=== PATIENT | male | born 1975 | race Two or more races ===

== ENCOUNTER 2024-09-20 17:52 | Inpatient (IN) | payer OTHER ==
[~2024-09-20] VITALS: Ht 170.2 cm; Wt 146.8 kg
--- NOTE | 2024-09-20 19:09 | DVH ---
Exam: CT CT AB PEL WO CON-NO ORAL OR IV History: periumbilical pain Comparison Study: None TECHNIQUE: Multidetector CT of the abdomen and pelvis was performed from lung bases to pubic symphysi s. Imaging was performed without IV contrast. Axial, coronal, and sagittal multiplanar reformats were obtained from the axial data set by the technologist. RADIATION DOSE: CTDI vol 26.24 mGy. DLP 1547.92 mGy.cm Findings: Limited evaluation of the solid organs in the absence of IV contrast. Liver: Nodular contour of the liver. Spleen: Splenomegaly. Pancreas: Unremarkable. Gallbladder: Cholelithiasis/biliary sludge. Adrenals: Unremarkable Kidneys: Unremarkable. Pelvic Viscera: Unremarkable. Vasculature: Mild atherosclerotic aortoiliac calcifications. Upper abdominal varices. Retroperitoneum: Moderate abdominopelvic ascites. Shotty retroperitoneal nodes. Bowel: No bowel obstruction. The appendix is normal. Small hiatal hernia. Musculoskeletal: Unremarkable. Soft tissues: Diffuse subcutaneous edema. Small umbilical hernia containing ascites. Lungs: The lung bases are clear. Impression: 1. Cirrhosis with constellation of findings as detailed suggesting portal hypertension in the appropr iate clinical setting. 2. Additional findings as detailed.
[2024-09-20 19:14] LABS: Hematocrit 40.8 % (41.0-53.0); Hemoglobin 13.9 g/dL (13.5-17.5); Mean Corpuscular Hemoglobin 28.6 pg (28.0-32.0); Mean Corpuscular Volume 84.0 fL (80.0-100.0); Nucleated Red Blood Cells % 0.1 %
[2024-09-20 19:31] LABS: Albumin 3.3 g/dL (3.2-4.8); Anion Gap 6 (5-15); BUN/Creatinine Ratio 11.9 (10.0-20.0); Blood Urea Nitrogen 10 mg/dL (9-23); Carbon Dioxide 28 mmol/L (20-31); Chloride 105 mmol/L (98-107); Lipase 38 U/L (12-53); Potassium 4.0 mmol/L (3.5-5.1); Sodium 139 mmol/L (136-145); Total Protein 6.7 g/dL (5.7-8.2)
[2024-09-20 19:32] LABS: Alanine Aminotransferase 78 U/L (7-40); Alkaline Phosphatase 117 U/L (46-116); Bilirubin, Total 4.0 mg/dL (0.2-1.0); Calcium 8.5 mg/dL (8.7-10.4); Glucose 128 mg/dL (74-106)
--- NOTE | 2024-09-20 21:03 | ED.PDOC ---
GI ASSESSMENT HPI Comments 48 year old male came to ER due to abdominal pain. Patient states for the past 3 weeks he has been having progressively worsening periumbilical pain, pressure, with a sensation of something protruding out his umbilicus. Noted abdominal distention and worsening pedal edema. Denies any fever, nausea or vomiting. Patient admits that he used to be a heavy alcohol drinker. Chief Complaint: Abdominal Pain Time Seen by MD: 21:02 Primary Care Provider: NONE Reviewed Notes: Nurses Notes Allergies: Coded Allergies: NO KNOWN ALLERGIES (Unverified , 09/20/24) Information Source: Patient Mode of Arrival: Ambulatory Timing: Hours Duration: Intermittent Prehospital treatment: None Quality: Aching Vomitus: None Stool: Normal Severity: Moderate Recent: None Recent Hx of: None Pain Location: Diffuse, Periumbilical Associated sign and symptoms: Abdominal Pain Past Medical History PAST MEDICAL HISTORY: DM Surgical History (Other): right foot surgery Family History Family History: Reviewed,noncontributory to illness Social History Smoker: Non-Smoker Alcohol: Sober Drugs: Denies Drug Use Lives In: Home Constitutional: denies: chills, diaphoresis, fatigue, fever, malaise, sweats, weakness, others EENTM: denies: blurred vision, double vision, ear bleeding, ear discharge, ear drainage, ear pain, ear ringing, eye pain, eye redness, hearing loss, mouth p ain, mouth swelling, nasal discharge, nose bleeding, nose congestion, nose pain, photophobia, tearing, throat pain, throat swelling, voice changes, others Respiratory: denies: cough, hemoptysis, orthopnea, SOB at rest, shortness of br eath, SOB with excertion, stridor, wheezing, others Cardiovascular: reports: edema; denies: chest pain, dizzy spells, diaphoresis, Dyspnea on exertion, irregular heart beat, left arm pain, lightheadedness, palpitations, PND, syncope, others Gastrointestinal: reports: abdomen distended, abdominal pain; denies: blood streaked bowels, constipated, diarrhea, dysphagia, difficulty swallowing, hematemesis, melena, nausea, poor appetite, poor fluid intake, rectal bleeding, rectal pain, vomiting, others Genitourinary: denies: burning, dysuria, flank pain, frequency, hematuria, incontinence, penile discharge, penile sore, pain, testicle pain, testicle swelling, urgency, others Neurological: denies: dizziness, fainting, headache, left sided numbness, left sided weakness, numbness, paresthesia, pre-existing deficit, right sided numbness, right sided weakness, seizure, speech problems, tingling, tremors, weakness, others Musculoskeletal: denies: back pain, gout, joint pain, joint swelling, muscle pain, muscle stiffness, neck pain, others Integumetry: denies: bruises, change in color, change in hair/nails, dryness, laceration, lesions, lumps, rash, wounds, others Allergic/Immunocompromised: denies: Difficulty Healing, Frequent Infections, Hives, Itching, others Hematologic/Lymphatic: denies: anemia, blood clots, easy bleeding, easy bruising, swollen glands, others Endocrine: denies: excessive hunger, excessive sweating, excessive thirst, excessive urination, flushing, intolerance to cold, intolerance to heat, unexplained weight gain, unexplained weight loss, others Psychiatric: denies: anxiety, bipolar disorder, depression, hopeless, panic disorder, schizophrenia, sleepless, suicidal, others Physical Exam General Appearance: No Apparent Distress, Obese HEENT: Other (Pupils and face symmetric. Moist mucous membranes.) Neck: Full Range of Motion, Normal Inspection Respiratory: Decreased Breath Sounds, No Accessory Muscle Use, No Respiratory Distress Cardiovascular: No JVD, Regular Rate/Rhythm Breast Exam: Deferred Gastrointestinal: Distended, Soft, Tenderness (Umbilical. No hernia noted.) Genitalia: Deferred Pelvic: Deferred Rectal: Deferred Extremities: Leg edema, Normal range of motion, Non-tender, Pedal edema Neurologic: Alert (Oriented x4), Normal Affect, Normal Mood, Other (Ambulatory) Cerebellar Function: NOT DONE Reflexes: NOT DONE Skin: Dry, Normal Color, Warm Lymphatic: NOT DONE Was a procedure done? Was a procedure done?: No GI differential Dx Differential Diagnosis: Diverticular disease, Gastritis/PUD, Gastroenteritis, Hernia, Hepatitis, Ischemic Bowel, Pancreatitis, UTI, Urolithiasis, Mass X-Ray, Labs, Meds, VS Vital Signs Date Time Temp Pulse Resp B/P (MAP) Pulse Ox O2 Delivery O2 Flow Rate FiO2 09/20/24 20:33 76 09/20/24 20:33 98.4 78 18 161/90 (113) 96 98.4 7/11/25 18:12 98.0 79 16 135/73 (93) 96 98.0 Lab Test 09/20/24 18:53 Range/Units White Blood Count 7.1 4.4-10.8 10^3/uL Red Blood Count 4.86 4.5-5.90 10^6/uL Hemoglobin 13.9 13.5-17.5 g/dL Hematocrit 40.8 L 41.0-53.0 % Mean Corpuscular Volume 84.0 80.0-100.0 fL Mean Corpuscular Hemoglobin 28.6 28.0-32.0 pg Mean Corpuscular Hemoglobin Concent 34.0 32.0-36.0 g/dL Red Cell Distribution Width 16.4 H 11.8-14.3 % Platelet Count 163 140-450 10^3/uL Mean Platelet Volume 7.8 6.9-10.8 fL Neutrophils (%) (Auto) 74.3 37.0-80.0 % Lymphocytes (%) (Auto) 12.8 10.0-50.0 % Monocytes (%) (Auto) 8.9 0.0-12.0 % Eosinophils (%) (Auto) 3.3 0.0-7.0 % Basophils (%) (Auto) 0.7 0.0-2.0 % Neutrophils # (Auto) 5.3 1.6-8.6 10 ^3/uL Lymphocytes # (Auto) 0.9 0.4-5.4 10 ^3/uL Monocytes # (Auto) 0.6 0-1.3 10 ^3/uL Eosinophils # (Auto) 0.2 0-0.8 10 ^3/uL Basophils # (Auto) 0 0-0.2 10 ^3/uL Nucleated Red Blood Cells 0.1 % Sodium Level 139 136-145 mmol/L Potassium Level 4.0 3.5-5.1 mmol/L Chloride Level 105 98-107 mmol/L Carbon Dioxide Level 28 20-31 mmol/L Anion Gap 6 5-15 Blood Urea Nitrogen 10 9-23 mg/dL Creatinine 0.84 0.700-1.30 mg/dL Glomerular Filtration Rate Calc 106 >90 mL/min BUN/Creatinine Ratio 11.9 10.0-20.0 Serum Glucose 128 H 74-106 mg/dL Calcium Level 8.5 L 8.7-10.4 mg/dL Total Bilirubin 4.0 H 0.2-1.0 mg/dL Aspartate Amino Transferase (AST) 106 H 13-40 U/L Alanine Aminotransferase (ALT) 78 H 7-40 U/L Alkaline Phosphatase 117 H 46-116 U/L B-Type Natriuretic Peptide 44.73 0-100 pg/mL Total Protein 6.7 5.7-8.2 g/dL Albumin 3.3 3.2-4.8 g/dL Lipase 38 12-53 U/L Exam: CT CT AB PEL WO CON-NO ORAL OR IV History: periumbilical pain Comparison Study: None TECHNIQUE: Multidetector CT of the abdomen and pelvis was performed from lung bases to pubic symphysis. Imaging was performed without IV contrast. Axial, coronal, and sagittal multiplanar reformats were obtained from the axial data set by the technologist. RADIATION DOSE: CTDI vol 26.24 mGy. DLP 1547.92 mGy.cm Findings: Limited evaluation of the solid organs in the absence of IV contrast. Liver: Nodular contour of the liver. Spleen: Splenomegaly. Pancreas: Unremarkable. Gallbladder: Cholelithiasis/biliary sludge. Adrenals: Unremarkable Kidneys: Unremarkable. Pelvic Viscera: Unremarkable. Vasculature: Mild atherosclerotic aortoiliac calcifications. Upper abdominal varices. Retroperitoneum: Moderate abdominopelvic ascites. Shotty retroperitoneal nodes. Bowel: No bowel obstruction. The appendix is normal. Small hiatal hernia. Musculoskeletal: Unremarkable. Soft tissues: Diffuse subcutaneous edema. Small umbilical hernia containing ascites. Lungs: The lung bases are clear. Impression: 1. Cirrhosis with constellation of findings as detailed suggesting portal hypertension in the appropriate clinical setting. 2. Additional findings as detailed. X-Ray, Labs, Meds, VS Comment 48-year-old male with a history of diabetes brought in by family complaining of worsening periumbilical pain, abdominal distention and lower extremity swelling for the past 3 weeks Vitals unremarkable Exam remarkable for abdominal distention, umbilical tenderness to palpation, bilateral lower extremity edema Rhythm strip independently interpreted by me: Sinus rhythm rate 79, no ectopy. CT abdomen and pelvis Impression: 1. Cirrhosis with constellation of findings as detailed suggesting portal hypertension in the appropriate clinical setting. 2. Additional findings as detailed. CBC unremarkable, CMP remarkable for total bilirubin of 4, AST 106, ALT 78, alkaline phos 117, lipase normal Patient treated with the following in the ED: Aldactone 50 mg p.o. On re-evaluation, exam is unchanged and vitals were stable Plan is to admit the patient for GI evaluation for a new diagnosis of liver cirrhosis with ascites Time of 1ST Reevaluation: 20:57 Reevaluation 1ST: Unchanged Patient Education/Counseling: Diagnosis, Treatment Family Education/Counseling: No Family Present SEPSIS Sepsis Screen Date sepsis recognized/suspect: Sep 20, 2024 Time Sepsis recognized/suspect: 1810 Recent Procedure: No On Antibiotic Therapy: No Respiratory Rate >20: No Heart Rate >90: No Temp<36 C (96.8 F) or >38.3 C: No SBP <90 or MAP <65 mmHG: No New Acute Mental Status Change: No Is the patient on CPAP, BIPAP,: No Physician Orders Urinalysis (09/20/24 18:36) Ct Ab Pel Wo Con-No Oral Or Iv (09/20/24 18:36) Vital Signs Date Time Temp Pulse Resp B/P (MAP) Pulse Ox O2 Delivery O2 Flow Rate FiO2 09/20/24 20:33 76 09/20/24 20:33 98.4 78 18 161/90 (113) 96 98.4 09/20/24 18:12 98.0 79 16 135/73 (93) 96 98.0 Laboratory Tests Test 09/20/24 18:53 White Blood Count 7.1 10^3/uL (4.4-10.8) Departure 1 Departure Time of Disposition: 00:00 Impression: Primary Impression: Decompensated hepatic cirrhosis Additional Impression: Ascites Disposition: ADMITTED INPATIENT Admit to: Med Surg Condition: Guarded Critical Care Note Critical Care Time?: No Stability Stability form required: No Heart Score Heart Score: Heart Score Response (Comments) Value History N/A 0 EKG N/A 0 Age N/A 0 Risk Factors N/A 0 Troponin N/A 0 Total 0 I personally scribed for JANNIE JUAREZ MD ([email or web address]) on 09/20/24 at 21:03. Electronically submitted by Miko Rodriguez ([facility]). I personally scribed for JANNIE JUAREZ MD ([email or web address]) on 09/20/24 at 21 :03. Electronically submitted by Miko Rodriguez ([facility]). JANNIE JUAREZ MD Sep 20, 2024 21:03
--- NOTE | 2024-09-20 23:55 | DVHHP2 ---
History of Present Illness History of Present Illness This is a 48-year-old male with past medical history of DM2, right foot surgery came to ER with the complain of abdominal pain which is around the umbilicus, 6/10, localized, no aggravating factor, try Tylenol which helps a little. Patient states for the past 3 weeks he has been having progressively worsening periumbilical pain, pressure, with a sensation of something protruding out his umbilicus. Noted abdominal distention and worsening pedal edema. Patient went to urgent care today and referred to ER due to bilateral leg swelling and conjunct ivitis. 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 His bilateral leg swelling approximately 3 years, swelling improving when he put pillow under the both legs during sleep. Not follow-up with PCP more than2 years and never seen by stadium manager. Having bilateral whitish eye discharge, redness and pain for last 3 days. Patient currently denies any fever, chest pain, SOB, headache, nausea, diarrhea, any focal weakness. PAST MEDICAL HISTORY: DM2 Surgical History : right foot surgery Family History: noncontributory Social History Smoker:Ex-Smoker Alcohol: Stopped 2 years ago Drugs: Denies Drug Use Lives In: Home Allergy: No known allergy PCP: Not Selected Review of Systems Constitutional: No: Fever, Chills, Sweats, Weakness, Malaise, Other Eyes: Pain, Conjunctivae inflammation, Other (Whitish discharge), Redness ENT: No: Ear pain, Ear discharge, Nose pain, Nose discharge, Nose congestion, Mouth pain, Mouth swelling, Throat pain, Throat swelling, Other Respiratory: No: Cough, Dry, Shortness of breath, SOB with excertion, Wheezing, Hemoptysis, Pleuritic Pain, Sputum, Wheezing, Other Cardiovascular: No: Chest Pain, Palpitations, Orthopnea, Paroxysmal Noc. Dyspnea, Edema, Lt Headedness, Other Gastrointestinal: Abdominal Pain, Other (Abdominal distention) Genitourinary: No Dysuria, No Frequency, No Incontinence, No Hematuria, No Retention, No Other Musculoskeletal: foot pain (Bilateral leg swelling); No: other, neck pain, shoulder pain, arm pain, back pain, hand pain, leg pain Skin: No: Rash, Lesions, Jaundice, Bruising, Other Neurological: No: Weakness, Numbness, Incoordination, Change in speech, Confusion, Seizures, Other Allergies: Coded Allergies: NO KNOWN ALLERGIES (Unverified , 09/20/24) Medications Current Medications Medications Dose Ordered Sig/John Route Start Time Stop Time Status Last Admin Dose Admin Furosemide 40 mg DAILY IV 09/21/24 10:00 Spironolactone 50 mg DAILY PO 09/21/24 10:00 Famotidine 20 mg Q12HR PO 09/21/24 10:00 Enoxaparin Sodium 40 mg DAILY SC 09/21/24 10:00 Exam Vital Signs Vital Signs Date Time Temp Pulse Resp B/P (MAP) Pulse Ox O2 Delivery O2 Flow Rate FiO2 09/20/24 20:33 76 09/20/24 20:33 98.4 18 161/90 (113) 96 98.4 General Appearance: Alert, Oriented X3, Cooperative HEENT: Atraumatic, PERRLA, EOMI, Other (Bilateral eye redness, whitish discharge noted) Respiratory: Clear to auscultation, Normal air movement Cardiovascular: Regular rate, Normal S1, Normal S2 Abdominal: Normal bowel sounds, Soft, Other (Tender on deep palpation) Extremities: No clubbing, No cyanosis, Other (3+ bilateral leg edema) Skin: No rashes, No breakdown Neuro: Normal speech, Strength at 5/5 X4 ext, Normal tone Labs/Xrays Labs Test 09/20/24 18:53 Range/Units White Blood Count 7.1 4.4-10.8 10^3/uL Red Blood Count 4.86 4.5-5.90 10^6/uL Hemoglobin 13.9 13.5-17.5 g/dL Hematocrit 40.8 L 41.0-53.0 % Mean Corpuscular Volume 84.0 80.0-100.0 fL Mean Corpuscular Hemoglobin 28.6 28.0-32.0 pg Mean Corpuscular Hemoglobin Concent 34.0 32.0-36.0 g/dL Red Cell Distribution Width 16.4 H 11.8-14.3 % Platelet Count 163 140-450 10^3/uL Mean Platelet Volume 7.8 6.9-10.8 fL Neutrophils (%) (Auto) 74.3 37.0-80.0 % Lymphocytes (%) (Auto) 12.8 10.0-50.0 % Monocytes (%) (Auto) 8.9 0.0-12.0 % Eosinophils (%) (Auto) 3.3 0.0-7.0 % Basophils (%) (Auto) 0.7 0.0-2.0 % Neutrophils # (Auto) 5.3 1.6-8.6 10 ^3/uL Lymphocytes # (Auto) 0.9 0.4-5.4 10 ^3/uL Monocytes # (Auto) 0.6 0-1.3 10 ^3/uL Eosinophils # (Auto) 0.2 0-0.8 10 ^3/uL Basophils # (Auto) 0 0-0.2 10 ^3/uL Nucleated Red Blood Cells 0.1 % Sodium Level 139 136-145 mmol/L Potassium Level 4.0 3.5-5.1 mmol/L Chloride Level 105 98-107 mmol/L Carbon Dioxide Level 28 20-31 mmol/L Anion Gap 6 5-15 Blood Urea Nitrogen 10 9-23 mg/dL Creatinine 0.84 0.700-1.30 mg/dL Glomerular Filtration Rate Calc 106 >90 mL/min BUN/Creatinine Ratio 11.9 10.0-20.0 Serum Glucose 128 H 74-106 mg/dL Calcium Level 8.5 L 8.7-10.4 mg/dL Total Bilirubin 4.0 H 0.2-1.0 mg/dL Aspartate Amino Transferase (AST) 106 H 13-40 U/L Alanine Aminotransferase (ALT) 78 H 7-40 U/L Alkaline Phosphatase 117 H 46-116 U/L B-Type Natriuretic Peptide 44.73 0-100 pg/mL Total Protein 6.7 5.7-8.2 g/dL Albumin 3.3 3.2-4.8 g/dL Lipase 38 12-53 U/L SEPSIS Sepsis Screen Date sepsis recognized/suspect: Sep 20, 2024 Time Sepsis recognized/suspect: 1810 Recent Procedure: No On Antibiotic Therapy: No Respiratory Rate >20: No Heart Rate >90: No Temp<36 C (96.8 F) or >38.3 C: No SBP <90 or MAP <65 mmHG: No New Acute Mental Status Change: No Is the patient on CPAP, BIPAP,: No Physician Orders Urinalysis (09/20/24 18:36) Ct Ab Pel Wo Con-No Oral Or Iv (09/20/24 18:36) Abdomen Complete Sonogram (09/20/24 23:38) Afp Serum Tumor Marker (09/20/24 23:38) Magnesium (09/20/24 23:38) Urinalysis (09/20/24 23:38) Drug Screen (09/20/24 23:38) Thyroid Stimulating Hormone (09/20/24 23:38) Chest Xray 1 View (09/20/24 23:38) Spironolactone (Aldactone) (09/21/24 10:00) Famotidine Tablet (Pepcid Tablet) (09/21/24 10:00) Enoxaparin Sodium (Lovenox) (09/21/24 10:00) Acute Hepatitis Panel (09/20/24 23:38) Bilat Lower Dvt (09/20/24 23:38) Furosemide Injection (Lasix Injection) (09/21/24 10:00) Comprehensive Metabolic Panel (09/21/24 04:00) Admit (09/20/24 23:53) Nitroglycerin Sublingual (Ntrostat Subli (09/21/24 00:00) Morphine Sulfate Injection (09/21/24 00:00) Oxygen By Nasal Cannula (09/20/24 23:53) Vital Signs Date Time Temp Pulse Resp B/P (MAP) Pulse Ox O2 Delivery O2 Flow Rate FiO2 09/20/24 20:33 76 09/20/24 20:33 98.4 78 18 161/90 (113) 96 98.4 09/20/24 18:12 98.0 79 16 135/73 (93) 96 98.0 Laboratory Tests Test 09/20/24 18:53 White Blood Count 7.1 10^3/uL (4.4-10.8) Assessment/Plan Assessment/Plan # Decompensated liver cirrhosis -Came with abdominal distention and abdominal pain, leg swelling -In ER patient received spironolactone 50 mg -BNP 44.3 -Lipase 38, Magnesium 1.9 -CXR: Mild prominence of the interstitial markings. Unremarkable cardiomediastinal silhouette. No pleural effusion or pneumothorax. -Elevated liver enzymes-AST 106, ALT 78, ALP 117, TOTAL BILIRUBIN 4.0 -CT ABD W/O CONTRAST: Cirrhosis with constellation of findings as detailed suggesting portal hypertension in the appropriate clinical setting. -US ABDOMEN : Cirrhotic appearance of the liver. Splenomegaly, Cholelithiasis with gallbladder wall thickening. -Calculate child-salcedo and MELD score when labs available -spironolactone 50 mg p.o. daily -Furosemide 40 mg p.o. daily -Alpha-fetoprotein level -Coreg 3.125 mg p.o. b.i.d. -PT PTT level -CMP in morning -GI consult # Abdominal pain due to cholelithiasis -US ABDOMEN : Cholelithiasis with gallbladder wall thickening. -surgery consult as per morning team # ELEVATED LIVER ENZYME due to cirrhosis of liver -Elevated liver enzymes-AST 106, ALT 78, ALP 117, TOTAL BILIRUBIN 4.0 -Acute hepatic panel -ETOH level # ACUTE CYSTITIS -UA-2+, leukocyte esterase 2+, RBC 20, WBC 8 -Ceftriaxone 1 gm iv daily # Bilateral leg edema to rule out DVT -Doppler US lower ext :. No right or left femoropopliteal venous thrombosis. short-interval follow-up study is suggested. Incidental note of bilateral lower extremity edema and inguinal adenopathy. -LEG ELEVATION DURING SLEEP #Type 2 diabetes mellitus -Not on medication -Blood sugar monitor -HbA1c ordered # Bilateral conjunctivitis likely viral/bacterial -ciprofloxacin eye drop 0.5%-1 drop each eye q.6 H # Morbid obesity, BMI 50.7 -TSH 2.06 -Lifestyle modification -Lipid profile DIET: HEPATIC DIET GI prophylaxis: Famotidine 20 mg p.o. b.i.d. DVT prophylaxis: Lovenox 40 mg sc daily Goals of care discussions, more than 29 minute spent. Full code status Case discussed with Dr. Abdi Plan discussed with: Patient, Other (Nurse) My Orders Orders - CORNELIUS ESPAÑA Procedure Category Date Status Time Admit ADMIT 09/20/24 Verified 23:53 Nitroglycerin PHA 09/21/24 Verified Sublingual (Ntrostat 00:00 Morphine Sulfate PHA 09/21/24 Verified Injection 00:00 Oxygen By Nasal RT 09/20/24 Verified Cannula 23:53 Date of Service: Sep 20, 2024 Billing Provider: YANN ABDI MD Common Visit Codes: 12865-UZGJMQM INP/OBS CARE (HIGH) Secondary Visit Codes: 44196-WLUDXJIH CARE PLAN 30 MINUTES CORNELIUS ESPAÑA RESIDENT Sep 20, 2024 23:55
[2024-09-21] VITALS (7 sets, daily range): BP systolic 113–137; BP diastolic 68–78; PULSE 64–69; RESP 17–19; TEMP 97.1–98.5; O2SAT 95–98
[2024-09-21] MEDS ORDERED: MORPHINE SULFATE INJ 2 MG/ml SYRG IV PRN
[2024-09-21] MEDS ORDERED: NITROGLYCERIN 0.4 MG SL TAB SL PRN
--- NOTE | 2024-09-21 00:17 | DVH ---
CHEST RADIOGRAPH Indication: cirrhosis Technique: Single frontal view of the chest was obtained Comparison: None FINDINGS/IMPRESSION: Mild prominence of the interstitial markings. Unremarkable cardiomediastinal si lhouette. No pleural effusion or pneumothorax. No acute osseous abnormality.
--- NOTE | 2024-09-21 00:41 | DVH ---
Bilateral lower extremity venous duplex Clinical History: dvt Comparison: None Findings: Duplex Doppler evaluation of the deep venous systems of both lower extremities from the common femora l veins to the popliteal veins including color Doppler and spectral/pulsed waveform analysis was perf ormed. The visualized veins demonstrate appropriate compressibility and waveform variability. There i s incidental note of bilateral lower extremity edema. Mild inguinal adenopathy is seen. IMPRESSION: 1. No right or left femoropopliteal venous thrombosis. 2. If clinical concern/symptoms persist or worsen, short-interval follow-up study is suggested. 3. Incidental note of bilateral lower extremity edema and inguinal adenopathy. 4. END IMPRESSION:
--- NOTE | 2024-09-21 00:58 | DVH ---
INDICATION: high bilirubin , ascitis TECHNIQUE: Multiple real-time sonographic images of the abdomen were obtained. COMPARISON: None FINDINGS: Suboptimal evaluation due to overlying bowel gas. The liver demonstrates increased echogenicity and a nodular contour. No intrahepatic biliary ductal dilatation is noted. No hepatic masses were seen. There is cholelithiasis. There is gallbladder wall thickening measuring up to 7 mm. The common bile duct is within normal limits at 5 mm. The pancreas was obscured due to overlying bowel gas. The right kidney measures 11.0 cm. The left kidney measures 11.7 cm. There is no hydronephrosis. There is splenomegaly measuring up to 15.9 cm. The pancreas is not well visualized. The aorta is not well visualized. The ivc is not well visualized. IMPRESSION: 1. Cirrhotic appearance of the liver. 2. Splenomegaly. 3. Cholelithiasis with gallbladder wall thickening, possibly reactive in etiology, with acute cholecy stitis not excluded.
[2024-09-21] MEDS: FAMOTIDINE 20 MG TAB PO ONE (01:15)
[2024-09-21] MEDS: SPIRONOLACTONE 25 MG TAB PO ONE (01:16)
[2024-09-21] MEDS: CARVEDILOL 3.125 MG TAB PO ONE (03:57)
[2024-09-21] MEDS: FUROSEMIDE 40 MG/4 ML VIAL IV ONE (03:58)
[2024-09-21 04:12] LABS: Urine Protein, UAD TRACE (Negative)
[2024-09-21 04:33] LABS: Amphetamine Screen, Urine Neg (NEGATIVE); Barbiturate Scree,Urine Neg (NEGATIVE); Benzodiazephine Screen, Urine Neg (NEGATIVE); Cannabinoid Screen, Urine Neg (NEGATIVE); Cocaine Screen, Urine Neg (NEGATIVE); Opiate Scree,Urine Neg (NEGATIVE); Phencyclidine Screen, Urine Neg (NEGATIVE)
[2024-09-21] MEDS: CIPROFLOXACIN 0.3%OPTH(EYE) SOL 5ML EACHEYE SCH (05:45)
--- NOTE | 2024-09-21 08:36 | DVH ---
CHEST RADIOGRAPH Indication: R/OUT PULMONARY EDEMA Technique: Single frontal view of the chest was obtained COMPARISON: None FINDINGS: The cardiac silhouette is enlarged. The lungs demonstrate bilateral patchy airspace opacities, most p ronounced in the right lower lobe region. The pulmonary vasculature is prominent. There is no pleural effusion. There is no pneumothorax. IMPRESSION: Cardiomegaly with pulmonary vascular congestion and bilateral patchy airspace opacities. More pronounced right lower lobe airspace opacification. Follow-up to resolution to exclude underlyi ng lesion.
[2024-09-21 09:50] LABS: Alkaline Phosphatase 99 U/L (46-116); Anion Gap 7 (5-15); BUN/Creatinine Ratio 13.3 (10.0-20.0); Blood Urea Nitrogen 10 mg/dL (9-23); Calcium 8.8 mg/dL (8.7-10.4); Carbon Dioxide 28 mmol/L (20-31); Chloride 105 mmol/L (98-107); Cholesterol 89 mg/dL (< 200); Potassium 3.9 mmol/L (3.5-5.1); Sodium 140 mmol/L (136-145); Total Protein 6.1 g/dL (5.7-8.2); Triglycerides 52 mg/dL (< 150)
[2024-09-21 09:52] LABS: Alanine Aminotransferase 70 U/L (7-40); Albumin 3.0 g/dL (3.2-4.8); Bilirubin, Total 3.9 mg/dL (0.2-1.0); Glucose 120 mg/dL (74-106); HDL Cholesterol 28 mg/dL (40-59)
[2024-09-21 10:27] LABS: INR 1.31 (0.9-1.15); Partial Thromboplastin Time 30.2 SEC (24.5-34.5); Prothrombin Time 13.5 sec (9.3-11.8)
[2024-09-21] MEDS: SPIRONOLACTONE 25 MG TAB PO SCH (10:39)
[2024-09-21] MEDS: FAMOTIDINE 20 MG TAB PO SCH (10:39)
[2024-09-21] MEDS: FUROSEMIDE 40 MG/4 ML VIAL IV SCH (10:41)
[2024-09-21] MEDS: ENOXAPARIN SOD 40 MG/0.4 ML SYRINGE SC SCH (10:43)
[2024-09-21] MEDS: CARVEDILOL 3.125 MG TAB PO SCH (11:30)
[2024-09-21] MEDS: cefTRIAXone 1GM/50ML D5W 50 ML IV ONE (11:35)
[2024-09-21] MEDS: cefTRIAXone 1GM/50ML D5W 50 ML IV SCH (14:28)
--- NOTE | 2024-09-21 17:06 | DVHPN2 ---
Progress Note - Dictate Date Seen: Sep 21, 2024 Medical Necessity Reason Pt with a Central, PICC or Fol: No vital signs Vital Sign Date Time Temp Pulse Resp B/P (MAP) Pulse Ox O2 Delivery O2 Flow Rate FiO2 09/21/24 16:41 97.9 65 18 127/68 (87) 95 97.9 09/21/24 08:00 Room Air* 0 21 Total Intake and Output 09/20/24 09/20/24 09/21/24 15:00 23:00 07:00 Intake Total 0 ml Balance 0 ml medications Current Medications Medications Dose Ordered Sig/John Route Start Time Stop Time Status Last Admin Dose Admin Furosemide 40 mg DAILY IV 09/21/24 10:00 09/21/24 10:41 40 MG Spironolactone 50 mg DAILY PO 09/21/24 10:00 09/21/24 10:39 50 MG Famotidine 20 mg Q12HR PO 09/21/24 10:00 09/21/24 10:39 20 MG Enoxaparin Sodium 40 mg DAILY SC 09/21/24 10:00 09/21/24 10:43 40 MG Nitroglycerin 0.4 mg Q5MINP PRN SL 09/21/24 00:00 Morphine Sulfate 2 mg Q30M PRN IV 09/21/24 00:00 Carvedilol 3.125 mg Q12HR PO 09/21/24 10:00 09/21/24 11:30 3.125 MG Ciprofloxacin HCl 1 drop Q6HR EACHEYE 09/21/24 06:00 09/21/24 11:36 1 DROP Ceftriaxone Sodium 50 ml @ 100 mls/hr DAILY IV 09/21/24 10:00 09/21/24 14:28 100 MLS/HR laboratory and microbiology Laboratory Tests 09/21/24 08:39 09/20/24 18:53 Test 09/21/24 08:39 Range/Units Serum Glucose 120 H 74-106 mg/dL Assessment/Plan Subjective patient is awake and alert Objective Patient states he has had a prior drinking problem in the past. Patient was admitted for abdominal pain. Abdominal pain could be related to ascites as well as gallstones with possible cholecystitis and fluid overload. Patient states he has had a history of liver cirrhosis for some time however he has not seen a doctor. Patient has severe bilateral lower extremity edema. BNP is within normal limits however he is morbidly obese. Ultrasound venous Doppler was negative for DVT. Plan GI consult for decompensated liver cirrhosis. Surgical consult for possible acute cholecystitis. Patient also has UTI. Continue IV antibiotics. Plan discussed with: Patient, Other LG MCFARLANE NP Sep 21, 2024 17:06
[2024-09-21 21:05] LABS: COVID19 ANTIGEN SOFIA FIA NEGATIVE (NEGATIVE)
--- NOTE | 2024-09-21 23:36 | DVHINCON2 ---
Date of service: Sep 21, [address] Arce Reason for Consultation Liver cirrhosis History of Present Illness 48 year old male came to ER due to abdominal pain. Patient states for the past 3 weeks he has been having progressively worsening periumbilical pain, pressure, with a sensation of something protruding out his umbilicus. Noted abdominal distention and worsening pedal edema. Denies any fever, nausea or vomiting. Patient admits that he used to be a heavy alcohol drinker. 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 He was an ex-smoker Patient has a family at bedside with two young children Allergies: Coded Allergies: NO KNOWN ALLERGIES (Unverified , 09/20/24) Home Meds No Active Prescriptions or Reported Meds Current Medications Current Medications Medications (Trade) Dose Ordered Sig/John Route PRN Reason Start Time Stop Time Status Last Admin Furosemide (Lasix Injection) 40 mg DAILY IV 09/21/24 10:00 09/21/24 10:41 Spironolactone (Aldactone) 50 mg DAILY PO 09/21/24 10:00 09/21/24 10:39 Famotidine (Pepcid Tablet) 20 mg Q12HR PO 09/21/24 10:00 09/21/24 20:54 Enoxaparin Sodium (Lovenox) 40 mg DAILY SC 09/21/24 10:00 09/21/24 10:43 Nitroglycerin (Ntrostat Sublingual) 0.4 mg Q5MINP PRN SL FOR CHEST PAIN 09/21/24 00:00 Morphine Sulfate 2 mg Q30M PRN IV FOR CHEST PAIN 09/21/24 00:00 Carvedilol (Coreg Tablet) 3.125 mg Q12HR PO 09/21/24 10:00 09/21/24 20:54 Ciprofloxacin HCl (Cipro Opthalmic) 1 drop Q6HR EACHEYE 09/21/24 06:00 09/21/24 18:11 Ceftriaxone Sodium 50 ml @ 100 mls/hr DAILY IV 09/21/24 10:00 09/21/24 14:28 Vital Signs Vital Signs Date Time Temp Pulse Resp B/P (MAP) Pulse Ox O2 Delivery O2 Flow Rate FiO2 09/21/24 21:54 66 110/66 09/21/24 21:00 98.5 18 95 98.5 09/21/24 20:00 Room Air* 0 21 Physical Exam General Appearance: Alert, Oriented X3, Cooperative; morbidly obese HEENT: Atraumatic, PERRLA, EOMI, Respiratory: Clear to auscultation, Normal air movement Cardiovascular: Regular rate, Normal S1, Normal S2 Abdominal: Normal bowel sounds, Soft, Other umbilical hernia Extremities: No clubbing, No cyanosis, Other (3+ bilateral leg edema) Skin: No rashes, No breakdown Neuro: Normal speech, Strength at 5/5 X4 ext, Normal tone Labs/Diagnostic Data Labs Test 09/21/24 20:00 09/21/24 08:39 09/21/24 03:44 09/20/24 18:53 Range/Units Influenza Type A Antigen Negative Negative Influenza Type B Antigen Negative Negative SARS-CoV-2 Antigen (Rapid) Negative NEGATIVE Prothrombin Time 13.5 H 9.3-11.8 sec Prothrombin Time INR 1.31 H 0.9-1.15 Activated Partial Thromboplast Time 30.2 24.5-34.5 SEC Sodium Level 140 136-145 mmol/L Potassium Level 3.9 3.5-5.1 mmol/L Chloride Level 105 98-107 mmol/L Carbon Dioxide Level 28 20-31 mmol/L Anion Gap 7 5-15 Blood Urea Nitrogen 10 9-23 mg/dL Creatinine 0.75 0.700-1.30 mg/dL Glomerular Filtration Rate Calc 110 >90 mL/min BUN/Creatinine Ratio 13.3 10.0-20.0 Serum Glucose 120 H 74-106 mg/dL Hemoglobin A1c 6.2 H <5.7 % A1C Calcium Level 8.8 8.7-10.4 mg/dL Total Bilirubin 3.9 H 0.2-1.0 mg/dL Aspartate Amino Transferase (AST) 97 H 13-40 U/L Alanine Aminotransferase (ALT) 70 H 7-40 U/L Alkaline Phosphatase 99 46-116 U/L Total Protein 6.1 5.7-8.2 g/dL Albumin 3.0 L 3.2-4.8 g/dL Triglycerides Level 52 < 150 mg/dL Cholesterol Level 89 < 200 mg/dL LDL Cholesterol 42 < 100 mg/dL HDL Cholesterol 28 L 40-59 mg/dL Plasma/Serum Blood Alcohol < 3.0 <10 mg/dL Urine Color Yellow Yellow Urine Clarity Clear Clear Urine pH 6.5 5.0-9.0 Urine Specific [place] 1.018 1.001-1.035 Urine Protein Trace H Negative Urine Ketones Negative Negative Urine Blood 2+ H Negative /uL Urine Nitrite Negative Negative Urine Bilirubin Negative Negative Urine Urobilinogen 12 H Negative mg/dL Urine Leukocyte Esterase 2+ Negative /uL Urine RBC 20 0 - 3 /hpf Urine Microscopic WBC 8 H 0-3 /HPF Urine Squamous Epithelial Cells Few <5 /hpf Urine Bacteria None seen None Seen /hpf Urine Glucose Normal Normal mg/dL Urine Opiates Screen Neg NEGATIVE Urine Fentanyl Screen Neg NEGATIVE Urine Barbiturates Screen Neg NEGATIVE Urine Phencyclidine Screen Neg NEGATIVE Urine Amphetamines Screen Neg NEGATIVE Urine Benzodiazepines Screen Neg NEGATIVE Urine Cocaine Screen Neg NEGATIVE Urine Cannabinoids Screen Neg NEGATIVE White Blood Count 7.1 4.4-10.8 10^3/uL Red Blood Count 4.86 4.5-5.90 10^6/uL Hemoglobin 13.9 13.5-17.5 g/dL Hematocrit 40.8 L 41.0-53.0 % Mean Corpuscular Volume 84.0 80.0-100.0 fL Mean Corpuscular Hemoglobin 28.6 28.0-32.0 pg Mean Corpuscular Hemoglobin Concent 34.0 32.0-36.0 g/dL Red Cell Distribution Width 16.4 H 11.8-14.3 % Platelet Count 163 140-450 10^3/uL Mean Platelet Volume 7.8 6.9-10.8 fL Neutrophils (%) (Auto) 74.3 37.0-80.0 % Lymphocytes (%) (Auto) 12.8 10.0-50.0 % Monocytes (%) (Auto) 8.9 0.0-12.0 % Eosinophils (%) (Auto) 3.3 0.0-7.0 % Basophils (%) (Auto) 0.7 0.0-2.0 % Neutrophils # (Auto) 5.3 1.6-8.6 10 ^3/uL Lymphocytes # (Auto) 0.9 0.4-5.4 10 ^3/uL Monocytes # (Auto) 0.6 0-1.3 10 ^3/uL Eosinophils # (Auto) 0.2 0-0.8 10 ^3/uL Basophils # (Auto) 0 0-0.2 10 ^3/uL Nucleated Red Blood Cells 0.1 % Magnesium Level 1.9 1.6-2.6 mg/dL B-Type Natriuretic Peptide 44.73 0-100 pg/mL Lipase 38 12-53 U/L Thyroid Stimulating Hormone (TSH) 2.06 0.55-4.78 uIU/mL RUQ USG IMPRESSION: 1. Cirrhotic appearance of the liver. 2. Splenomegaly. 3. Cholelithiasis with gallbladder wall thickening, possibly reactive in etiology, with acute cholecystitis not excluded. Problems(with codes): (1) Pedal edema (2) Ascites (3) Decompensated hepatic cirrhosis (4) Elevated liver enzymes Plan/Recommendation Plan Patient has been started on spironolactone and Lasix Monitor labs and check PT INR and an ammonia level Cut back on his salt intake and hepatic diet 2D echo ;r/o chf Patient does not appear to have enough ascites for paracentesis IV albumin Patient states he needs to be discharge tomorrow as he has to carry a trach load that he is committed to Patient stated he will return to the ER if his symptoms got worse My contact information was given for outpatient follow up with GI Services for ongoing management Overall his prognosis is guarded and family at bedside is aware Plan discussed with: Patient, Spouse JOE NEWBERRY MD Sep 21, 2024 23:36
[2024-09-22 01:00] VITALS: BP 114/54; PULSE 79; RESP 18; TEMP 98.7; O2SAT 97
[2024-09-22 05:00] VITALS: BP_SYST 105; BP_SYST 111; BP_DIAS 54; BP_DIAS 65; PULSE 69; PULSE 78; RESP 16; TEMP 98.1; TEMP 98.7; O2SAT 100; O2SAT 96
[2024-09-22 06:14] LABS: Hematocrit 36.8 % (41.0-53.0); Hemoglobin 12.6 g/dL (13.5-17.5); Mean Corpuscular Hemoglobin 28.6 pg (28.0-32.0); Mean Corpuscular Volume 83.6 fL (80.0-100.0); Nucleated Red Blood Cells % 0.1 %
[2024-09-22 06:33] LABS: Alanine Aminotransferase 61 U/L (7-40); Albumin 2.7 g/dL (3.2-4.8); Alkaline Phosphatase 94 U/L (46-116); BUN/Creatinine Ratio 14.3 (10.0-20.0); Bilirubin, Total 2.7 mg/dL (0.2-1.0); Blood Urea Nitrogen 12 mg/dL (9-23); Calcium 8.2 mg/dL (8.7-10.4); Chloride 106 mmol/L (98-107); Glucose 152 mg/dL (74-106); Potassium 4.1 mmol/L (3.5-5.1); Sodium 140 mmol/L (136-145); Total Protein 5.6 g/dL (5.7-8.2)
[2024-09-22 06:44] LABS: Anion Gap 6 (5-15); Carbon Dioxide 28 mmol/L (20-31)
--- NOTE | 2024-09-22 08:06 | DVHPN2 ---
Progress Note - Dictate Medical Necessity Reason Pt with a Central, PICC or Fol: No vital signs Vital Sign Date Time Temp Pulse Resp B/P (MAP) Pulse Ox O2 Delivery O2 Flow Rate FiO2 09/22/24 05:00 98.7 69 16 111/54 (73) 96 98.7 09/21/24 20:00 Room Air* 0 21 Total Intake and Output 09/21/24 09/21/24 09/22/24 15:00 23:00 07:00 Intake Total 50 ml 850 ml 550 ml Output Total 1200 ml 600 ml Balance -1150 ml 250 ml 550 ml medications Current Medications Medications Dose Ordered Sig/John Route Start Time Stop Time Status Last Admin Dose Admin Furosemide 40 mg DAILY IV 09/21/24 10:00 09/21/24 10:41 40 MG Spironolactone 50 mg DAILY PO 09/21/24 10:00 09/21/24 10:39 50 MG Famotidine 20 mg Q12HR PO 09/21/24 10:00 09/21/24 20:54 20 MG Enoxaparin Sodium 40 mg DAILY SC 09/21/24 10:00 09/21/24 10:43 40 MG Nitroglycerin 0.4 mg Q5MINP PRN SL 09/21/24 00:00 Morphine Sulfate 2 mg Q30M PRN IV 09/21/24 00:00 Carvedilol 3.125 mg Q12HR PO 09/21/24 10:00 09/21/24 20:54 3.125 MG Ciprofloxacin HCl 1 drop Q6HR EACHEYE 09/21/24 06:00 09/22/24 05:24 1 DROP Ceftriaxone Sodium 50 ml @ 100 mls/hr DAILY IV 09/21/24 10:00 09/21/24 14:28 100 MLS/HR laboratory and microbiology Laboratory Tests 09/22/24 05:29 Test 09/22/24 05:29 Range/Units Serum Glucose 152 H 74-106 mg/dL Assessment/Plan Subjective patient is awake and alert Objective Patient states he has had a prior drinking problem in the past. Patient was admitted for abdominal pain. Abdominal pain could be related to ascites as well as gallstones with possible cholecystitis and fluid overload. Patient states he has had a history of liver cirrhosis for some time however he has not seen a doctor. Patient has severe bilateral lower extremity edema. BNP is within normal limits however he is morbidly obese. Ultrasound venous Doppler was negative for DVT. Plan GI consult for decompensated liver cirrhosis. Surgical consult for possible acute cholecystitis. Patient also has UTI. Continue IV antibiotics. LG MCFARLANE NP Sep 22, 2024 08:06
[2024-09-22] MEDS ORDERED: FURO1TAB31 PO (08:07)
[2024-09-22] MEDS ORDERED: SPIR50TA5 PO (08:07)
[2024-09-22] MEDS ORDERED: CARV-214 PO (08:07)
[2024-09-22 08:43] VITALS: BP 107/69; PULSE 71; RESP 17; TEMP 97.8; O2SAT 94
[2024-09-22] MEDS: FUROSEMIDE 40 MG/4 ML VIAL IV SCH (09:09)
[2024-09-22 12:27] VITALS: BP 121/76; PULSE 62; RESP 20; TEMP 97.1; O2SAT 97
--- NOTE | 2024-09-22 13:08 | DVHSR ---
APPROVED REPORT EXAM: Two-dimensional and M-mode echocardiogram with Doppler and color Doppler. Blood Pressure: 107/69 mmHg INDICATION CHF RISK FACTORS Obesity: Height: 5'7", Weight: 323 DIMENSIONS LVDd4.3 (3.8-5.7cm)LA (2D)4.6 (1.9-4.0cm)Aortic Root3.6 (2.0-3.7cm) LVDs2.9 (2.5-4.0cm)LA (MM) (1.9-4.0cm)Aortic Cusp Exc1.9 (1.5-2.0cm) EF (%) 60.0 (55-70%)Rt. Atrium4.8 (1.9-4.0cm)Asc. Aorta cm IVSd1.2 (0.7-1.1cm)RV (D)5.5 (1.8-2.4cm) PWd1.2 (0.7-1.1cm) Mitral Valve MitralMitral Stenosis E wave0.92m/sMV Mean GR.mmHg A wave0.92m/sMV Peak GR.mmHg E/A ratio1.02D MVAcm2 DECEL [id number] 1/2 Timems Aortic Valve Aortic ValveAortic Stenosis V11.00m/Carlos Mean GR.6mmHg V21.60m/Carlos Peak GR.10mmHg LVOT Diameter2.2 (1.8-2.4cm)Doppler AVA2.37cm2 Pulmonic Valve V21.35m/s Tricuspid Valve TR Velocity2.26m/s [id number] Conclusion Left ventricle: Left ventricle was normal-sized with normal systolic function. There was no gross w all motion abnormality. LVEF was 60%. Right ventricle was mildly dilated with normal systolic function. Both atria were mildly dilated. Aortic valve was trileaflet. There was no aortic insufficiency/stenosis. There was no mitral regurg itation. There was trace pulmonary valve insufficiency. There was trace tricuspid regurgitation. Right ventricular systolic pressure was normal at 29 mm Hg. There was no pericardial effusion.
--- NOTE | 2024-09-22 14:15 | DVHINCON2 ---
Date of service: Sep 22, 2024 History of Present Illness HPI Patient is a 48-year-old gentleman who presented with periumbilical pain and swelling/leg edema and conjunctivitis to the hospital. He mentions that he went to urgent care for his conjunctivitis and was referred to the hospital for abdominal swelling/leg swelling. He mentions that he is experiencing leg edema going back for many months and abdominal swelling for 2 years. He mentions that they have been slowly worsening. He does not follow with physicians as outpatient. He used to be alcoholic and stopped alcohol few years back. He is found to have liver cirrhosis. Cardiology was involved to rule out cardiac reason for edema. Home Meds Active Scripts Furosemide (Lasix) 40 Mg Tab, 40 MG PO BID for 30 Days, #60 TAB 5 Refills Prov:LG MCFARLANE [employer] 09/22/24 Spironolactone (Spironolactone) 50 Mg Tab, 1 TAB PO DAILY, #30 TAB 5 Refills Prov:LG MCFARLANE NP 09/22/24 Carvedilol (COREG) 3.125 Mg Tab, 3.125 MG PO Q12HR for 30 Days, #60 TAB 3 Refills Prov:DENYSLG M [employer] SAL[employer] MANAGER 09/22/24 Past Medical History Others Past medical history includes morbid obesity, diabetes mellitus, old history of right foot surgery. Used to be heavily alcoholic. There was question about history of liver cirrhosis Patient Family History: FH: cancer G8 MOTHER Drugs: None Review of Systems Constitutional: No symptom reported Ears, Nose, & Throat: No symptom reported Gastrointestinal: Abdominal Pain All Other Systems Fourteen point review of system was performed. Relevant findings as per above and as per HPI. Otherwise negative. H&P Exam Vital Signs Vital Signs Date Time Temp Pulse Resp B/P (MAP) Pulse Ox O2 Delivery O2 Flow Rate FiO2 09/22/24 12:27 97.1 62 20 121/76 (91) 97 97.1 09/22/24 08:00 Room Air* 0 21 General Appeara: Well developed, Obese Head Exam: Normal inspection Neck Exam: Normal inspection Eye Exam: bilateral eye PERRL Nasal Exam: Normal inspection Mouth: Normal Inspection Pulmonary/Respiratory: Lungs clear Cardiovascular/Chest: Normal inspection, Regular rate, Systolic murmur Peripheral Pulses: 2+ carotid (R), 2+ carotid (L), 2+ femoral (R), 2+ femoral (L) Abdominal Exam: Normal bowel sounds Neuro/Mental St: Alert, Oriented Appearance: Appropriate appearance Eye contact/ Speech: Cooperative Labs/Xrays Labs Test 09/22/24 05:29 09/21/24 20:00 09/21/24 08:39 09/21/24 03:44 Range/Units White Blood Count 6.1 4.4-10.8 10^3/uL Red Blood Count 4.41 L 4.5-5.90 10^6/uL Hemoglobin 12.6 L 13.5-17.5 g/dL Hematocrit 36.8 L 41.0-53.0 % Mean Corpuscular Volume 83.6 80.0-100.0 fL Mean Corpuscular Hemoglobin 28.6 28.0-32.0 pg Mean Corpuscular Hemoglobin Concent 34.2 32.0-36.0 g/dL Red Cell Distribution Width 16.6 H 11.8-14.3 % Platelet Count 139 L 140-450 10^3/uL Mean Platelet Volume 8.0 6.9-10.8 fL Neutrophils (%) (Auto) 71.1 37.0-80.0 % Lymphocytes (%) (Auto) 12.3 10.0-50.0 % Monocytes (%) (Auto) 12.1 H 0.0-12.0 % Eosinophils (%) (Auto) 3.6 0.0-7.0 % Basophils (%) (Auto) 0.9 0.0-2.0 % Neutrophils # (Auto) 4.3 1.6-8.6 10 ^3/uL Lymphocytes # (Auto) 0.7 0.4-5.4 10 ^3/uL Monocytes # (Auto) 0.7 0-1.3 10 ^3/uL Eosinophils # (Auto) 0.2 0-0.8 10 ^3/uL Basophils # (Auto) 0.1 0-0.2 10 ^3/uL Nucleated Red Blood Cells 0.1 % Sodium Level 140 136-145 mmol/L Potassium Level 4.1 3.5-5.1 mmol/L Chloride Level 106 98-107 mmol/L Carbon Dioxide Level 28 20-31 mmol/L Anion Gap 6 5-15 Blood Urea Nitrogen 12 9-23 mg/dL Creatinine 0.84 0.700-1.30 mg/dL Glomerular Filtration Rate Calc 106 >90 mL/min BUN/Creatinine Ratio 14.3 10.0-20.0 Serum Glucose 152 H 74-106 mg/dL Calcium Level 8.2 L 8.7-10.4 mg/dL Total Bilirubin 2.7 H 0.2-1.0 mg/dL Aspartate Amino Transferase (AST) 80 H 13-40 U/L Alanine Aminotransferase (ALT) 61 H 7-40 U/L Alkaline Phosphatase 94 46-116 U/L Total Protein 5.6 L 5.7-8.2 g/dL Albumin 2.7 L 3.2-4.8 g/dL Influenza Type A Antigen Negative Negative Influenza Type B Antigen Negative Negative SARS-CoV-2 Antigen (Rapid) Negative NEGATIVE Prothrombin Time 13.5 H 9.3-11.8 sec Prothrombin Time INR 1.31 H 0.9-1.15 Activated Partial Thromboplast Time 30.2 24.5-34.5 SEC Hemoglobin A1c 6.2 H <5.7 % A1C Triglycerides Level 52 < 150 mg/dL Cholesterol Level 89 < 200 mg/dL LDL Cholesterol 42 < 100 mg/dL HDL Cholesterol 28 L 40-59 mg/dL Plasma/Serum Blood Alcohol < 3.0 <10 mg/dL Urine Color Yellow Yellow Urine Clarity Clear Clear Urine pH 6.5 5.0-9.0 Urine Specific [place] 1.018 1.001-1.035 Urine Protein Trace H Negative Urine Ketones Negative Negative Urine Blood 2+ H Negative /uL Urine Nitrite Negative Negative Urine Bilirubin Negative Negative Urine Urobilinogen 12 H Negative mg/dL Urine Leukocyte Esterase 2+ Negative /uL Urine RBC 20 0 - 3 /hpf Urine Microscopic WBC 8 H 0-3 /HPF Urine Squamous Epithelial Cells Few <5 /hpf Urine Bacteria None seen None Seen /hpf Urine Glucose Normal Normal mg/dL Urine Opiates Screen Neg NEGATIVE Urine Fentanyl Screen Neg NEGATIVE Urine Barbiturates Screen Neg NEGATIVE Urine Phencyclidine Screen Neg NEGATIVE Urine Amphetamines Screen Neg NEGATIVE Urine Benzodiazepines Screen Neg NEGATIVE Urine Cocaine Screen Neg NEGATIVE Urine Cannabinoids Screen Neg NEGATIVE Test 09/20/24 18:53 Range/Units Magnesium Level 1.9 1.6-2.6 mg/dL B-Type Natriuretic Peptide 44.73 0-100 pg/mL Lipase 38 12-53 U/L Tumor Marker Alpha Fetoprotein <1.8 0.0-6.9 ng/mL Thyroid Stimulating Hormone (TSH) 2.06 0.55-4.78 uIU/mL Microbiology Date/Time Source Procedure Growth Status 09/21/24 03:44 Other Urine Culture - Preliminary Resulted Assessment/Plan Plan Patient is a 48-year-old gentleman who presented with periumbilical pain and swelling/leg edema and conjunctivitis to the hospital. He mentions that he went to urgent care for his conjunctivitis and was referred to the hospital for abdominal swelling/leg swelling. He mentions that he is experiencing leg edema going back for many months and abdominal swelling for 2 years. He mentions that they have been slowly worsening. He does not follow with physicians as outpatient. He used to be alcoholic and stopped alcohol few years back. He is found to have liver cirrhosis. Cardiology was involved to rule out cardiac reason for edema. Obese patient. Not in acute distress. Cachectic neck. Edematous lower extremity and abdomen. No JVD. Mucosa is pink and wet. Lungs are clear to auscultation. Cardiac: Regular, no thrill/gallop. Abdomen is distended. Hepatomegaly is suspected. Extremities reveal 4+ edema in lower extremities. Dorsalis pedis is 2+ bilateral Past medical history includes morbid obesity, diabetes mellitus, old history of right foot surgery. Used to be heavily alcoholic. There was question about history of liver cirrhosis Creatinine: 0.84 - 0.75 - 0.84 Potassium: 4.0 - 3.9 - 4.1 BNP: 44.73 AST/ALT: 106/78 - 97/70 - 80/61 Chest x-ray revealed: FINDINGS/IMPRESSION: Mild prominence of the interstitial markings. Unremarkable cardiomediastinal silhouette. No pleural effusion or pneumothorax. No acute osseous abnormality. Repeat chest x-ray revealed: IMPRESSION: Cardiomegaly with pulmonary vascular congestion and bilateral patchy airspace opacities. More pronounced right lower lobe airspace opacification. Follow-up to resolution to exclude underlying lesion. Abdomen and pelvic CT scan revealed: Limited evaluation of the solid organs in the absence of IV contrast. Liver: Nodular contour of the liver. Spleen: Splenomegaly. Pancreas: Unremarkable. Gallbladder: Cholelithiasis/biliary sludge. Adrenals: Unremarkable Kidneys: Unremarkable. Pelvic Viscera: U nremarkable. Vasculature: Mild atherosclerotic aortoiliac calcifications. Upper abdominal varices. Retroperitoneum: Moderate abdominopelvic ascites. Shotty retroperitoneal nodes. Bowel: No bowel obstruction. The appendix is normal. Small hiatal hernia. Musculoskeletal: Unremarkable. Soft tissues: Diffuse subcutaneous edema. Small umbilical hernia containing ascites. Lungs: The lung bases are clear. Impression: 1. Cirrhosis with constellation of findings as detailed suggesting portal hypertension in the appropriate clinical setting. 2. Additional findings as detailed. Abdominal ultrasound revealed: IMPRESSION: 1. Cirrhotic appearance of the liver. 2. Splenomegaly. 3. Cholelithiasis with gallbladder wall thickening, possibly reactive in etiology, with acute cholecystitis not excluded. Venous Doppler of lower extremities revealed: IMPRESSION: 1. No right or left femoropopliteal venous thrombosis. 2. If clinical concern/symptoms persist or worsen, short-interval follow-up study is suggested. 3. Incidental note of bilateral lower extremity edema and inguinal adenopathy. EKG revealed sinus rhythm with right bundle branch block Echocardiogram reported: Left ventricle: Left ventricle was normal-sized with normal systolic function. There was no gross wall motion abnormality. LVEF was 60%. Right ventricle was mildly dilated with normal systolic function. Both atria were mildly dilated. Aortic valve was trileaflet. There was no aortic insufficiency/stenosis. There was no mitral regurgitation. There was trace pulmonary valve insufficiency. There was trace tricuspid regurgitation. Right ventricular systolic pressure was normal at 29 mm Hg. There was no pericardial effusion. Patient is a 48-year-old gentleman who presented with abdominal swelling/leg edema. He is found to have liver cirrhosis. Cardiology was involved to rule out cardiac etiology for presentation. Echocardiogram findings are against heart failure to be the culprit of presentation. Liver cirrhosis Abnormal LFT Morbid obesity Previously alcoholic [place] Cardiac suggestion for management: Managed on telemetry Follow-up electrolytes and kidney function tests and correct abnormalities Evaluation and management of liver cirrhosis/comorbidities as per primary team/GI Lifestyle and risk factor modifications Further evaluation and management depends on the above and clinical course Thank you for consultation A total of 75 minutes was spent reviewing the patient record, examining the patient, making a diagnostic and therapeutic plan, discussing this plan with medical personnel, following up on diagnostic studies and following the patient for clinical stability excluding any and all procedures. At least 50% of this time was spent in direct, [id number] contact. Thank you for allowing me to participate in this patient's care. Further recommendations will depend on patient's clinical course. Please do not hesitate to contact me if you have any questions or concerns. This medical document was created using electronic medical record system with [employer] computerized dictation system. Although this document has been carefully reviewed, there may still be some phonetic and typographical errors. These areas are purely typographical due to the imperfection of the software programs, and do not reflect any compromise in the patient's medical care. Plan discussed with: Patient, Other (nurse) CINDY VENCES MD Sep 22, 2024 14:15
--- NOTE | 2024-09-22 16:23 | DVHDS2 ---
Discharge Summary Date of Admission Sep 20, 2024 at 23:53 Date of Discharge: Sep 22, 2024 Labs/Diagnostic Data: Laboratory Results Test 09/22/24 05:29 09/21/24 20:00 09/21/24 08:39 09/21/24 03:44 White Blood Count 6.1 10^3/uL (4.4-10.8) Red Blood Count 4.41 10^6/uL (4.5-5.90) Hemoglobin 12.6 g/dL (13.5-17.5) Hematocrit 36.8 % (41.0-53.0) Mean Corpuscular Volume 83.6 fL (80.0-100.0) Mean Corpuscular Hemoglobin 28.6 pg (28.0-32.0) Mean Corpuscular Hemoglobin Concent 34.2 g/dL (32.0-36.0) Red Cell Distribution Width 16.6 % (11.8-14.3) Platelet Count 139 10^3/uL (140-450) Mean Platelet Volume 8.0 fL (6.9-10.8) Neutrophils (%) (Auto) 71.1 % (37.0-80.0) Lymphocytes (%) (Auto) 12.3 % (10.0-50.0) Monocytes (%) (Auto) 12.1 % (0.0-12.0) Eosinophils (%) (Auto) 3.6 % (0.0-7.0) Basophils (%) (Auto) 0.9 % (0.0-2.0) Neutrophils # (Auto) 4.3 10 ^3/uL (1.6-8.6) Lymphocytes # (Auto) 0.7 10 ^3/uL (0.4-5.4) Monocytes # (Auto) 0.7 10 ^3/uL (0-1.3) Eosinophils # (Auto) 0.2 10 ^3/uL (0-0.8) Basophils # (Auto) 0.1 10 ^3/uL (0-0.2) Nucleated Red Blood Cells 0.1 % Sodium Level 140 mmol/L (136-145) Potassium Level 4.1 mmol/L (3.5-5.1) Chloride Level 106 mmol/L (98-107) Carbon Dioxide Level 28 mmol/L (20-31) Anion Gap 6 (5-15) Blood Urea Nitrogen 12 mg/dL (9-23) Creatinine 0.84 mg/dL (0.700-1.30) Glomerular Filtration Rate Calc 106 mL/min (>90) BUN/Creatinine Ratio 14.3 (10.0-20.0) Serum Glucose 152 mg/dL (74-106) Calcium Level 8.2 mg/dL (8.7-10.4) Total Bilirubin 2.7 mg/dL (0.2-1.0) Aspartate Amino Transferase (AST) 80 U/L (13-40) Alanine Aminotransferase (ALT) 61 U/L (7-40) Alkaline Phosphatase 94 U/L (46-116) Total Protein 5.6 g/dL (5.7-8.2) Albumin 2.7 g/dL (3.2-4.8) Influenza Type A Antigen Negative (Negative) Influenza Type B Antigen Negative (Negative) SARS-CoV-2 Antigen (Rapid) Negative (NEGATIVE) Prothrombin Time 13.5 sec (9.3-11.8) Prothrombin Time INR 1.31 (0.9-1.15) Activated Partial Thromboplast Time 30.2 SEC (24.5-34.5) Hemoglobin A1c 6.2 % A1C (<5.7) Triglycerides Level 52 mg/dL (< 150) Cholesterol Level 89 mg/dL (< 200) LDL Cholesterol 42 mg/dL (< 100) HDL Cholesterol 28 mg/dL (40-59) Plasma/Serum Blood Alcohol < 3.0 mg/dL (<10) Urine Color Yellow (Yellow) Urine Clarity Clear (Clear) Urine pH 6.5 (5.0-9.0) Urine Specific [place] 1.018 (1.001-1.035) Urine Protein Trace (Negative) Urine Ketones Negative (Negative) Urine Blood 2+ /uL (Negative) Urine Nitrite Negative (Negative) Urine Bilirubin Negative (Negative) Urine Urobilinogen 12 mg/dL (Negative) Urine Leukocyte Esterase 2+ /uL (Negative) Urine RBC 20 /hpf (0 - 3) Urine Microscopic WBC 8 /HPF (0-3) Urine Squamous Epithelial Cells Few /hpf (<5) Urine Bacteria None seen /hpf (None Seen) Urine Glucose Normal mg/dL (Normal) Urine Opiates Screen Neg (NEGATIVE) Urine Fentanyl Screen Neg (NEGATIVE) Urine Barbiturates Screen Neg (NEGATIVE) Urine Phencyclidine Screen Neg (NEGATIVE) Urine Amphetamines Screen Neg (NEGATIVE) Urine Benzodiazepines Screen Neg (NEGATIVE) Urine Cocaine Screen Neg (NEGATIVE) Urine Cannabinoids Screen Neg (NEGATIVE) Test 09/20/24 18:53 Magnesium Level 1.9 mg/dL (1.6-2.6) B-Type Natriuretic Peptide 44.73 pg/mL (0-100) Lipase 38 U/L (12-53) Tumor Marker Alpha Fetoprotein <1.8 ng/mL (0.0-6.9) Thyroid Stimulating Hormone (TSH) 2.06 uIU/mL (0.55-4.78) Other Laboratory Tests 09/22/24 05:29 Brief Hx & Hospital Course: Patient was admitted on 09/20/2024 for bilateral lower extremity edema. BNP was within normal limits, however patient is morbidly obese. Cardiology was consulted. Echocardiogram was ordered. Ultrasound of the abdomen showed cholelithiasis and they cannot rule out cholecystitis. Patient was found to have liver cirrhosis. Patient states he was a heavy drinker in the past. GI has been consulted. Patient started on diuretics. Patient decided to leave before further workup and test can be done. I did send diuretics to his pharmacy and instructed him to follow-up with his primary provider as soon as possible. The patient decided they wanted to leave AMA. The patient was informed about the risk of leaving. And was informed about the risk that are involved if they left without any treatment which may include . The patient was okay with it and decided to leave without any intervention. The patient was told to return for any worsening symptoms. Condition at Discharge: Unstable Final Diagnosis/Problems List abdominal pain decompensated liver cirrhosis cholelithasis acute cysitis bilateral lower extremity edema bilateral conjutivitis morbid obesity Discharge Disposition: AMA Discharge Instruct/Medications Scheduled Carvedilol (Coreg), 3.125 MG PO Q12HR Furosemide (Lasix), 40 MG PO BID Spironolactone (Spironolactone), 1 TAB PO DAILY Discharge Statement: "Patient was advised to return to the ER or call 911 if any headaches, dizziness, shortness of breath, chest pain, abdominal pain, bleeding, fevers, or worsening of medical condition. Patient was counseled about treatment plan, medications, possible side effects, patientverbalized understanding. All questions were answered to the best of my ability. 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
--- NOTE | 2024-09-23 07:34 | ECG ---
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
[2024-09-23 10:13] LABS: Hepatitis B Surface Antigen Negative (Negative)
[2024-09-23 11:25] LABS: Hepatitis C Antibody Positive (Negative)
== END 2024-09-22 14:20 | disposition left against medical advice (07) ==
LOC: ER 17:52 → OVERFLOW 23:53 → EAST 23:54
PROVIDERS: ADMIT Internal Medicine; ATTEND Internal Medicine
DX: K74.60 Unspecified cirrhosis of liver (principal); R18.8 Other ascites; K80.00 Calculus of gallbladder with acute cholecystitis without obstruction; Z68.43 Body mass index [BMI] 50.0-59.9, adult; E11.9 Type 2 diabetes mellitus without complications; N30.00 Acute cystitis without hematuria; Z20.822 Contact with and (suspected) exposure to COVID-19; E66.01 Morbid (severe) obesity due to excess calories; Z79.899 Other long term (current) drug therapy; Z87.891 Personal history of nicotine dependence; Z53.29 Procedure and treatment not carried out because of patient's decision for other reasons
CPT/HCPCS: 36415; 71045; 74176; 76700; 80053; 80061; 80074; 80307; 80320; 81001; 82105; 82306; 82607; 82746; 83036; 83690; 83735; 83880; 84443; 85025; 85610; 85730; 87086; 87426; 87804; 93005; 93306; 93970; 96365; 96375; G0378

== ENCOUNTER 2025-02-12 11:16 | Inpatient (IN) | payer OTHER ==
[~2025-02-12] VITALS: Ht 170.2 cm; Wt 149.3 kg
[~2025-02-12 11:16] MED LIST: CARV-214 PO; FURO1TAB31 PO; SPIR50TA5 PO
--- NOTE | 2025-02-12 11:40 | ED.PDOC ---
GI ASSESSMENT HPI Comments This is a 49 year old male presenting to the ED with chief complaint of abdominal pain. Patient reports that he has been experiencing diffuse abdominal pain and distention for the past 5 months, however, this morning he also began to experience left groin pain and swelling, believing it is due to a hernia. Patient relays that he has history of liver disease and is currently on medication for it. Patient denies any N/V/D, dizziness, fever, chills, or chest pain. Chief Complaint: Abdominal Pain Time Seen by MD: 11:38 Primary Care Provider: NONE Reviewed Notes: Nurses Notes, Medications, Allergies Allergies: Coded Allergies: NO KNOWN ALLERGIES (Unverified , 09/20/24) Home Meds Active Scripts Furosemide (Lasix) 40 Mg Tab, 40 MG PO BID for 30 Days, #60 TAB 5 Refills Prov:LG MCFARLANE NP 09/22/24 Spironolactone (Spironolactone) 50 Mg Tab, 1 TAB PO DAILY, #30 TAB 5 Refills Prov:LG MCFARLANE NP 09/22/24 Carvedilol (COREG) 3.125 Mg Tab, 3.125 MG PO Q12HR for 30 Days, #60 TAB 3 Refills Prov:LG MCFARLANE NP 09/22/24 Information Source: Patient Mode of Arrival: Ambulatory Timing: Days, Months Duration: Since onset Prehospital treatment: None Quality: Aching, Sharp Vomitus: None Stool: Normal Severity: Moderate Recent: None Recent Hx of: Liver Disease Pain Location: Diffuse Modifying Factors: Nothing Associated sign and symptoms: Abdominal Pain Past Medical History PAST MEDICAL HISTORY: DM, Liver Surgical History: Denies all surgeries Family History Family History: Reviewed,noncontributory to illness Social History Smoker: Non-Smoker Alcohol: Sober Drugs: Denies Drug Use Lives In: Home Constitutional: denies: chills, diaphoresis, fatigue, fever, malaise, sweats, weakness, others EENTM: denies: blurred vision, double vision, ear bleeding, ear discharge, ear drainage, ear pain, ear ringing, eye pain, eye redness, hearing loss, mouth pain, mouth swelling, nasal discharge, nose bleeding, nose congestion, nose pain, photophobia, tearing, throat pain, throat swelling, voice changes, others Respiratory: denies: cough, hemoptysis, orthopnea, SOB at rest, shortness of breath, SOB with excertion, stridor, wheezing, others Cardiovascular: denies: chest pain, dizzy spells, diaphoresis, Dyspnea on exertion, edema, irregular heart beat, left arm pain, lightheadedness, palpitations, PND, syncope, others Gastrointestinal: reports: abdomen distended, abdominal pain, others (Lt Inguinal pain); denies: blood streaked bowels, constipated, diarrhea, dysphagia, difficulty swallowing, hematemesis, melena, nausea, poor appetite, poor fluid in take, rectal bleeding, rectal pain, vomiting Genitourinary: denies: burning, dysuria, flank pain, frequency, hematuria, incontinence, penile discharge, penile sore, pain, testicle pain, testicle swelling, urgency, others Neurological: denies: dizziness, fainting, headache, left sided numbness, left sided weakness, numbness, paresthesia, pre-existing deficit, right sided numbness, right sided weakness, seizure, speech problems, tingling, tremors, weakness, others Musculoskeletal: denies: back pain, gout, joint pain, joint swelling, muscle pain, muscle stiffness, neck pain, others Integumetry: denies: bruises, change in color, change in hair/nails, dryness, laceration, lesions, lumps, rash, wounds, others Allergic/Immunocompromised: denies: Difficulty Healing, Frequent Infections, Hives, Itching, others Hematologic/Lymphatic: denies: anemia, blood clots, easy bleeding, easy bruisin g, swollen glands, others Endocrine: denies: excessive hunger, excessive sweating, excessive thirst, excessive urination, flushing, intolerance to cold, intolerance to heat, unexplained weight gain, unexplained weight loss, others Psychiatric: denies: anxiety, bipolar disorder, depression, hopeless, panic disorder, schizophrenia, sleepless, suicidal, others All Other Systems: Reviewed and Negative Physical Exam General Appearance: Moderate Distress, Normal, Obese HEENT: Normal ENT Inspection, Pharynx Normal, TMs Normal Neck: Full Range of Motion, Non-Tender, Normal, Normal Inspection Respiratory: Chest Non-Tender, Lungs Clear, No Accessory Muscle Use, No Respiratory Distress, Normal Breath Sounds Cardiovascular: No Edema, No JVD, No Murmur, No Gallop, Normal Peripheral Pulses, Regular Rate/Rhythm Breast Exam: Deferred Gastrointestinal: Distended, No Organomegaly, No Pulsatile Mass, Normal Bowel Sounds, Soft Genitalia: Deferred Pelvic: Deferred Rectal: Deferred Extremities: No calf tenderness, Normal capillary refill, Normal inspection, Normal range of motion, Non-tender, No pedal edema Musculoskeletal : Apperance: Normal Neurologic: Alert, heatset winder operator II-XII nml as Tested, No Motor Deficits, Normal Affect, Normal Mood, No Sensory Deficits Cerebellar Function: Normal Reflexes: Normal Skin: Dry, Normal Color, Warm Peripheral Pulses: 3+ Radial (R), 3+ Radial (L) Lymphatic: No Adenopathy Was a procedure done? Was a procedure done?: No GI differential Dx Differential Diagnosis: Constipation, Diverticular disease, Esophagitis, Gastritis/PUD, Gastroenteritis X-Ray, Labs, Meds, VS Vital Signs Date Time Temp Pulse Resp B/P (MAP) Pulse Ox O2 Delivery O2 Flow Rate FiO2 02/12/25 11:17 98.1 88 18 167/80 96 98.1 Lab Test 02/12/25 11:55 Range/Units White Blood Count 7.8 4.4-10.8 10^3/uL Red Blood Count 4.45 L 4.5-5.90 10^6/uL Hemoglobin 13.5 13.5-17.5 g/dL Hematocrit 39.4 L 41.0-53.0 % Mean Corpuscular Volume 88.7 80.0-100.0 fL Mean Corpuscular Hemoglobin 30.3 28.0-32.0 pg Mean Corpuscular Hemoglobin Concent 34.2 32.0-36.0 g/dL Red Cell Distribution Width 15.6 H 11.8-14.3 % Platelet Count 97 L 140-450 10^3/uL Mean Platelet Volume 8.2 6.9-10.8 fL Neutrophils (%) (Auto) 75.9 37.0-80.0 % Lymphocytes (%) (Auto) 11.3 10.0-50.0 % Monocytes (%) (Auto) 9.8 0.0-12.0 % Eosinophils (%) (Auto) 2.3 0.0-7.0 % Basophils (%) (Auto) 0.7 0.0-2.0 % Neutrophils # (Auto) 5.9 1.6-8.6 10 ^3/uL Lymphocytes # (Auto) 0.9 0.4-5.4 10 ^3/uL Monocytes # (Auto) 0.8 0-1.3 10 ^3/uL Eosinophils # (Auto) 0.2 0-0.8 10 ^3/uL Basophils # (Auto) 0.1 0-0.2 10 ^3/uL Nucleated Red Blood Cells 0.1 % Sodium Level 143 136-145 mmol/L Potassium Level 3.8 3.5-5.1 mmol/L Chloride Level 109 H 98-107 mmol/L Carbon Dioxide Level 24 20-31 mmol/L Anion Gap 10 5-15 Blood Urea Nitrogen 9 9-23 mg/dL Creatinine 0.83 0.700-1.30 mg/dL Glomerular Filtration Rate Calc 106 >90 mL/min BUN/Creatinine Ratio 10.8 10.0-20.0 Serum Glucose 164 H 74-106 mg/dL Calcium Level 8.2 L 8.7-10.4 mg/dL Total Bilirubin 4.0 H 0.2-1.0 mg/dL Aspartate Amino Transferase (AST) 75 H 13-40 U/L Alanine Aminotransferase (ALT) 55 H 7-40 U/L Alkaline Phosphatase 104 46-116 U/L Total Protein 6.6 5.7-8.2 g/dL Albumin 3.2 3.2-4.8 g/dL Patient alert. Obese. Vitals stable. Answering questions. Liver disease pain WBC within normal limits. He does have abdominal discomfort. Umbilical hernia. Explained to the patient. Continue monitoring. Time of 1ST Reevaluation: 12:37 Reevaluation 1ST: Unchanged Patient Education/Counseling: Diagnosis, Treatment Family Education/Counseling: Diagnosis, Treatment SEPSIS Sepsis Screen Date sepsis recognized/suspect: Feb 12, 2025 Time Sepsis recognized/suspect: 1121 Recent Procedure: No On Antibiotic Therapy: No Respiratory Rate >20: No Heart Rate >90: No Temp<36 C (96.8 F) or >38.3 C: No SBP <90 or MAP <65 mmHG: No New Acute Mental Status Change: No Is the patient on CPAP, BIPAP,: No Physician Orders Urinalysis (02/12/25 11:36) Ct Ab Pel Wo Con-No Oral Or Iv (02/12/25 11:36) Vital Signs Date Time Temp Pulse Resp B/P (MAP) Pulse Ox O2 Delivery O2 Flow Rate FiO2 02/12/25 11:17 98.1 88 18 167/80 96 98.1 Laboratory Tests Test 02/12/25 11:55 White Blood Count 7.8 10^3/uL (4.4-10.8) Departure 1 Departure Time of Disposition: 12:55 Impression: Primary Impression: Cirrhosis of liver with ascites Qualified Codes: K70.31 - Alcoholic cirrhosis of liver with ascites; K72.90 - Hepatic failure, unspecified without coma Additional Impression: Acute abdominal pain Disposition: ADMITTED INPATIENT Admit to: Med Surg Condition: Guarded Critical Care Note Critical Care Time?: No Stability Stability form required: No Heart Score Heart Score: Heart Score Response (Comments) Value History N/A 0 EKG N/A 0 Age N/A 0 Risk Factors N/A 0 Troponin N/A 0 Total 0 I personally scribed for ADOLFO FOWLER MD ([email or web address]) on 02/12/25 at 11:40. Electronically submitted by Carlos Howell ([email or web address]). ADOLFO FOWLER MD Feb 12, 2025 11:40
[2025-02-12 12:20] LABS: Hematocrit 39.4 % (41.0-53.0); Hemoglobin 13.5 g/dL (13.5-17.5); Mean Corpuscular Hemoglobin 30.3 pg (28.0-32.0); Mean Corpuscular Volume 88.7 fL (80.0-100.0); Nucleated Red Blood Cells % 0.1 %
--- NOTE | 2025-02-12 12:27 | DVH ---
EXAM: CT CT AB PEL WO CON-NO ORAL OR IV INDICATION: hernia TECHNIQUE: Volumetric multidetector CT images of the abdomen and pelvis were obtained without contrast. All CT scans at this facility use dose modulation, iterative reconstruction, and/or weight based dosing when appropriate to reduce radiation dose to as low as reasonably achievable. COMPARISON: CT CT AB PEL WO CON-NO ORAL OR IV on DOS: 09/20/24 FINDINGS: [LOWER CHEST]: The partially visualized lung bases are clear without a pleural effusion. The cardiac size is normal without pericardial effusion. [LIVER]: Small size of the liver with cirrhotic morphology and micronodular contour. Gastroesophageal varices. [GALLBLADDER AND BILIARY TREE]: Layering cholelithiasis. [SPLEEN]: Splenomegaly. [PANCREAS]: Pancreas is atrophic. [ADRENAL GLANDS]: Unremarkable [KIDNEYS]: Underlying medical renal disease with small caliber of bilateral kidneys. No hydronephrosis. No nephroureterolithiasis. No suspicious focal lesion. [BLADDER]: Unremarkable for the degree distention. [REPRODUCTIVE ORGANS]: Moderate to severe right and mild left gynecomastia. [BOWEL/MESENTERY]: Stomach is normal. Mild stool burden. Mesenteric congestion. No CT evidence of bowel obstruction. [ASCITES]: Moderate to large volume ascites. [LYMPHADENOPATHY]: Likely reactive bilateral inguinal lymph nodes. No pathologically enlarged lymph nodes by CT size criteria. [VASCULATURE]: No aneurysmal dilatation. [ABDOMINAL WALL]: Body wall edema compatible with anasarca. Fat and fluid containing umbilical hernia. Umbilical hernia 1.9 cm neck, 4.9 cm sac. [MUSCULOSKELETAL]: No acute fracture or aggressive focal osseous lesion. IMPRESSION: 1. Cirrhosis with sequelae of portal hypertension including splenomegaly, gastroesophageal varices, and moderate to large volume ascites. 2. Anasarca. 3. Fat and fluid containing umbilical hernia.
[2025-02-12 12:30] LABS: Alkaline Phosphatase 104 U/L (46-116); Anion Gap 10 (5-15); BUN/Creatinine Ratio 10.8 (10.0-20.0); Blood Urea Nitrogen 9 mg/dL (9-23); Carbon Dioxide 24 mmol/L (20-31); Potassium 3.8 mmol/L (3.5-5.1); Sodium 143 mmol/L (136-145); Total Protein 6.6 g/dL (5.7-8.2)
[2025-02-12 12:31] LABS: Alanine Aminotransferase 55 U/L (7-40); Albumin 3.2 g/dL (3.2-4.8); Bilirubin, Total 4.0 mg/dL (0.2-1.0); Calcium 8.2 mg/dL (8.7-10.4); Chloride 109 mmol/L (98-107); Glucose 164 mg/dL (74-106)
[2025-02-12 15:00] LABS: Urine Protein, UAD TRACE (Negative)
[2025-02-12] MEDS ORDERED: NITROGLYCERIN 0.4 MG SL TAB SL PRN (16:00)
[2025-02-12] MEDS ORDERED: ONDANSETRON HCL 4 MG/2 ML VIAL IV PRN (16:00)
[2025-02-12] MEDS ORDERED: ACETAMINOPHEN 325 MG TAB PO PRN (16:00)
[2025-02-12] MEDS ORDERED: DOCUSATE SOD 100 MG CAP PO PRN (16:00)
[2025-02-12] MEDS ORDERED: MORPHINE SULFATE INJ 2 MG/ml SYRG IV PRN ×2 (16:00)
--- NOTE | 2025-02-12 16:05 | DVHHP2 ---
Admitting Diagnosis: abdominal pain History of Present Illness Patient presenting to the ED with chief complaint of abdominal pain. Patient reports that he has been experiencing diffuse abdominal pain and distention for the past 5 months, however, this morning he also began to experience left groin pain and swelling, believing it is due to a hernia. Patient relays that he has history of liver disease and is currently on medication for it. Patient denies any N/V/D, dizziness, fever, chills, or chest pain. While in the emergency department the patient was evaluated by the provider, As per provider: Labs, vital signs, and imagining monitored. Patient will be admitted for further evaluation and treatment. I discussed admission with the patient/family and is in agreement to treatment plan. Patient Family History: FH: cancer G8 MOTHER Allergies: Coded Allergies: NO KNOWN ALLERGIES (Unverified , 09/20/24) Home Meds Active Scripts Furosemide (Lasix) 40 Mg Tab, 40 MG PO BID for 30 Days, #60 TAB 5 Refills Prov:LG MCFARLANE NP 09/22/24 Spironolactone (Spironolactone) 50 Mg Tab, 1 TAB PO DAILY, #30 TAB 5 Refills Prov:LG MCFARLANE NP 09/22/24 Carvedilol (COREG) 3.125 Mg Tab, 3.125 MG PO Q12HR for 30 Days, #60 TAB 3 Refills Prov:LG MCFARLANE OYSTER SORTER 09/22/24 Current Medications Current Medications Medications (Trade) Dose Ordered Sig/John Route PRN Reason Start Time Stop Time Status Last Admin Acetaminophen/ Hydrocodone Bitart (Putney 5/325MG Tab) 1 tab Q4HP PRN PO MODERATE PAIN (4-6 PAIN SCALE) 02/12/25 16:00 Temazepam (Restoril) 15 mg QHSP PRN PO FOR INSOMNIA 02/12/25 16:00 Ondansetron HCl (Zofran) 4 mg Q4HP PRN IV NAUSEA / VOMITING 02/12/25 16:00 Docusate Sodium (Colace Capsule) 100 mg BIDPRN PRN PO FOR CONSTIPATION 02/12/25 16:00 Acetaminophen (Tylenol Tablet) 650 mg Q6HP PRN PO PAIN SCALE 1-3 OR TEMP>100.4 02/12/25 16:00 Morphine Sulfate 2 mg Q4HPRN PRN IV SEVERE PAIN (7-10 PAIN SCALE) 02/12/25 16:00 Pantoprazole Sodium (Protonix) 40 mg DAILY IV 02/13/25 10:00 Nitroglycerin (Ntrostat Sublingual) 0.4 mg Q5MINP PRN SL FOR CHEST PAIN 02/12/25 16:00 Morphine Sulfate 2 mg Q30M PRN IV FOR CHEST PAIN 02/12/25 16:00 Furosemide (Lasix Injection) 40 mg DAILY IV 02/12/25 18:00 02/12/25 19:47 Spironolactone (Aldactone) 25 mg DAILY PO 02/13/25 10:00 Review of Systems Constitutional: denies chills, denies fever, denies malaise Eyes: denies eye pain, denies vision change ENT: denies ear pain, denies headache, denies nasal congestion, denies painful swallowing, denies voice change Cardiovascular: denies chest pain, denies edema, denies orthopnea, denies palpitations, denies paroxysmal nocturnal dyspnea Respiratory: denies cough, denies shortness of breath Gastrointestinal: denies constipation, denies diarrhea, denies nausea, denies vomiting Genitourinary: denies dysuria, denies frequent urination, denies urethral discharge Musculoskeletal: denies back pain, denies joint pain, denies muscle pain Skin: denies bruising, denies itching, denies rash Neurological: denies focal weakness, denies headache, denies sensory changes Psychiatric: denies anxiety, denies depression Endocrine: denies polydipsia, denies polyuria Hematologic/Lymphatic: denies easy bleeding, denies easy bruising, denies enlarged lymph nodes Allergic/Immunologic: denies allergy, denies hives Vital Signs Vital Signs Date Time Temp Pulse Resp B/P (MAP) Pulse Ox O2 Delivery O2 Flow Rate FiO2 02/12/25 19:48 79 16 170/81 (110) 100 02/12/25 16:52 98.1 98.1 Physical Exam General Appearance: alert, no distress HEENT: EOMI, PERRLA, normal external inspect of ears, no icterus, no nasal drainage Neck: no carotid bruit, no jugular venous distention (JVD), no lymphadenopathy Chest: normal thorax Respiratory: clear to auscultation, normal air movement Cardiovascular: regular rate and rhythm, no diastolic murmur, no jugular venous distention (JVD), no rub, no systolic murmur Abdominal: soft, no hepatomegaly, no mass, no splenomegaly, no tenderness Genitourinary: grossly normal external Musculoskeletal: no joint tenderness, no swelling Extremities: normal pulses, no calf tenderness, no clubbing, no cyanosis, no edema Skin: no bruising, no jaundice, no rash Neurological: alert, No focal deficit SEPSIS Sepsis Screen Date sepsis recognized/suspect: Feb 12, 2025 Time Sepsis recognized/suspect: 1120 Recent Procedure: No On Antibiotic Therapy: No Respiratory Rate >20: No Heart Rate >90: No Temp<36 C (96.8 F) or >38.3 C: No SBP <90 or MAP <65 mmHG: No New Acute Mental Status Change: No Is the patient on CPAP, BIPAP,: No Physician Orders Ct Ab Pel Wo Con-No Oral Or Iv (02/12/25 11:36) Admit (02/12/25 16:00) Code Status (02/12/25 16:00) Hydrocodone-Acet 5/325mg Tab (Putney 5/32 (02/12/25 16:00) Temazepam (Restoril) (02/12/25 16:00) Ondansetron Hcl (Zofran) (02/12/25 16:00) Docusate Sodium Capsule (Colace Capsule) (02/12/25 16:00) Condition: Fair (02/12/25 16:00) Acetaminophen Tablet (Tylenol Tablet) (02/12/25 16:00) Clear Liq Diet (02/12/25 Dinner) Morphine Sulfate Injection (02/12/25 16:00) Sequential Compression Device (02/12/25 ) Pantoprazole (Protonix) (02/13/25 10:00) * Gi Dvh Thermocouple Tester (02/12/25 16:00) Nitroglycerin Sublingual (Ntrostat Subli (02/12/25 16:00) Morphine Sulfate Injection (02/12/25 16:00) Stat Ekg For Chest Pain (02/12/25 16:00) Notify Md Of Changes From Base (02/12/25 16:00) Cooker Soda For 24 Hours (02/12/25 16:00) Emergency Dysrhythmia Protocol (02/12/25 16:00) Rhythm Strips Once Every Shift (02/12/25 16:00) Oxygen By Nasal Cannula (02/12/25 16:00) Furosemide Injection (Lasix Injection) (02/12/25 18:00) Spironolactone (Aldactone) (02/13/25 10:00) Vital Signs Date Time Temp Pulse Resp B/P (MAP) Pulse Ox O2 Delivery O2 Flow Rate FiO2 02/12/25 19:48 79 16 170/81 (110) 100 02/12/25 19:47 170/81 02/12/25 16:52 98.1 75 16 156/104 (121) 98 98.1 02/12/25 14:26 98.5 73 16 149/85 (106) 97 98.5 02/12/25 11:17 98.1 88 18 167/80 96 98.1 Laboratory Tests Test 02/12/25 11:55 White Blood Count 7.8 10^3/uL (4.4-10.8) Medications Medications Dose Ordered Sig/John Route Start Time Stop Time Status Last Admin Dose Admin Furosemide 40 mg DAILY IV 02/12/25 18:00 02/12/25 19:47 Results Labs Test 02/12/25 16:42 02/12/25 16:00 02/12/25 14:39 02/12/25 11:55 Range/Units Ammonia 59 H 11-32 umol/L Lipase 32 12-53 U/L Urine Opiates Screen Neg NEGATIVE Urine Fentanyl Screen Neg NEGATIVE Urine Barbiturates Screen Neg NEGATIVE Urine Phencyclidine Screen Neg NEGATIVE Urine Amphetamines Screen Neg NEGATIVE Urine Benzodiazepines Screen Neg NEGATIVE Urine Cocaine Screen Neg NEGATIVE Urine Cannabinoids Screen Neg NEGATIVE Urine Color Yellow Yellow Urine Clarity Clear Clear Urine pH 6.0 5.0-9.0 Urine Specific [place] 1.026 1.001-1.035 Urine Protein Trace H Negative Urine Ketones Negative Negative Urine Blood 3+ H Negative /uL Urine Nitrite Negative Negative Urine Bilirubin 1+ Negative Urine Urobilinogen Over Negative mg/dL Urine Leukocyte Esterase Trace Negative /uL Urine RBC 60 0 - 3 /hpf Urine Microscopic WBC 5 H 0-3 /HPF Urine Squamous Epithelial Cells None seen <5 /hpf Urine Bacteria None seen None Seen /hpf Urine Mucus Few None Seen Urine Glucose Normal Normal mg/dL White Blood Count 7.8 4.4-10.8 10^3/uL Red Blood Count 4.45 L 4.5-5.90 10^6/uL Hemoglobin 13.5 13.5-17.5 g/dL Hematocrit 39.4 L 41.0-53.0 % Mean Corpuscular Volume 88.7 80.0-100.0 fL Mean Corpuscular Hemoglobin 30.3 28.0-32.0 pg Mean Corpuscular Hemoglobin Concent 34.2 32.0-36.0 g/dL Red Cell Distribution Width 15.6 H 11.8-14.3 % Platelet Count 97 L 140-450 10^3/uL Mean Platelet Volume 8.2 6.9-10.8 fL Neutrophils (%) (Auto) 75.9 37.0-80.0 % Lymphocytes (%) (Auto) 11.3 10.0-50.0 % Monocytes (%) (Auto) 9.8 0.0-12.0 % Eosinophils (%) (Auto) 2.3 0.0-7.0 % Basophils (%) (Auto) 0.7 0.0-2.0 % Neutrophils # (Auto) 5.9 1.6-8.6 10 ^3/uL Lymphocytes # (Auto) 0.9 0.4-5.4 10 ^3/uL Monocytes # (Auto) 0.8 0-1.3 10 ^3/uL Eosinophils # (Auto) 0.2 0-0.8 10 ^3/uL Basophils # (Auto) 0.1 0-0.2 10 ^3/uL Nucleated Red Blood Cells 0.1 % Sodium Level 143 136-145 mmol/L Potassium Level 3.8 3.5-5.1 mmol/L Chloride Level 109 H 98-107 mmol/L Carbon Dioxide Level 24 20-31 mmol/L Anion Gap 10 5-15 Blood Urea Nitrogen 9 9-23 mg/dL Creatinine 0.83 0.700-1.30 mg/dL Glomerular Filtration Rate Calc 106 >90 mL/min BUN/Creatinine Ratio 10.8 10.0-20.0 Serum Glucose 164 H 74-106 mg/dL Hemoglobin A1c 5.5 <5.7 % A1C Calcium Level 8.2 L 8.7-10.4 mg/dL Total Bilirubin 4.0 H 0.2-1.0 mg/dL Aspartate Amino Transferase (AST) 75 H 13-40 U/L Alanine Aminotransferase (ALT) 55 H 7-40 U/L Alkaline Phosphatase 104 46-116 U/L Total Protein 6.6 5.7-8.2 g/dL Albumin 3.2 3.2-4.8 g/dL Plan 1. Cirrhosis of the liver Monitor, GI consult, diuretics 2. Morbid obesity Monitor 3. Diabetes type 2 and hyperglycemia Monitor, insulin sliding scale, HgbA1c 4. Thrombocytopenia Monitor, urine drug screen 5. Cholelithiasis Monitor, GI consult, SCDs Plan discussed with: Patient, Other LG MCFARLANE NP Feb 12, 2025 16:05
[2025-02-12 17:14] LABS: Amphetamine Screen, Urine Neg (NEGATIVE); Barbiturate Scree,Urine Neg (NEGATIVE); Benzodiazephine Screen, Urine Neg (NEGATIVE); Cocaine Screen, Urine Neg (NEGATIVE); Opiate Scree,Urine Neg (NEGATIVE); Phencyclidine Screen, Urine Neg (NEGATIVE)
[2025-02-12 18:20] LABS: Cannabinoid Screen, Urine Neg (NEGATIVE)
[2025-02-12] MEDS: FUROSEMIDE 40 MG/4 ML VIAL IV SCH (19:47)
[2025-02-13 07:30] VITALS: PULSE 78; RESP 16; O2SAT 98
[2025-02-13] MEDS: SPIRONOLACTONE 25 MG TAB PO SCH (10:18)
[2025-02-13] MEDS: PANTOPRAZOLE 40 MG/10 ML VIAL INJ IV SCH (10:19)
[2025-02-13] MEDS: HYDROcodone-ACET 5/325MG TAB PO PRN (15:23)
[2025-02-13 17:00] VITALS: BP 149/81; PULSE 68; RESP 19; TEMP 98.1; O2SAT 97
--- NOTE | 2025-02-13 17:50 | DVHPN2 ---
Progress Note - Dictate Date Seen: Feb 13, 2025 Medical Necessity Reason Pt with a Central, PICC or Fol: No vital signs Vital Sign Date Time Temp Pulse Resp B/P (MAP) Pulse Ox O2 Delivery O2 Flow Rate FiO2 02/13/25 14:01 71 16 126/67 (86) 98 02/13/25 12:20 98.1 98.1 02/13/25 07:30 Room Air* 0 21 medications Current Medications Medications Dose Ordered Sig/John Route Start Time Stop Time Status Last Admin Dose Admin Acetaminophen/ Hydrocodone Bitart 1 tab Q4HP PRN PO 02/12/25 16:00 02/13/25 15:23 1 TAB Temazepam 15 mg QHSP PRN PO 02/12/25 16:00 Ondansetron HCl 4 mg Q4HP PRN IV 02/12/25 16:00 Docusate Sodium 100 mg BIDPRN PRN PO 02/12/25 16:00 Acetaminophen 650 mg Q6HP PRN PO 02/12/25 16:00 Morphine Sulfate 2 mg Q4HPRN PRN IV 02/12/25 16:00 Pantoprazole Sodium 40 mg DAILY IV 02/13/25 10:00 02/13/25 10:19 40 MG Nitroglycerin 0.4 mg Q5MINP PRN SL 02/12/25 16:00 Morphine Sulfate 2 mg Q30M PRN IV 02/12/25 16:00 Furosemide 40 mg DAILY IV 02/12/25 18:00 02/13/25 10:19 40 MG Spironolactone 25 mg DAILY PO 02/13/25 10:00 02/13/25 10:18 25 MG objective General Appearance: alert, no distress HEENT: EOMI, PERRLA, normal external inspect of ears, no icterus, no nasal drainage Neck: no carotid bruit, no jugular venous distention (JVD), no lymphadenopathy Chest: normal thorax Respiratory: clear to auscultation, normal air movement Cardiovascular: regular rate and rhythm, no diastolic murmur, no jugular venous distention (JVD), no rub, no systolic murmur Abdominal: soft, no hepatomegaly, no mass, no splenomegaly, no tenderness Genitourinary: grossly normal external Musculoskeletal: no joint tenderness, no swelling Extremities: normal pulses, no calf tenderness, no clubbing, no cyanosis, no edema Skin: no bruising, no jaundice, no rash Neurological: alert, No focal deficit laboratory and microbiology Laboratory Tests 02/12/25 11:55 Test 02/12/25 11:55 Range/Units Serum Glucose 164 H 74-106 mg/dL Problem List 1. Cirrhosis of the liver Monitor, GI consult, diuretics 2. Morbid obesity Monitor 3. Diabetes type 2 and hyperglycemia Monitor, insulin sliding scale, HgbA1c 4. Thrombocytopenia Monitor, urine drug screen 5. Cholelithiasis Monitor, GI consult, SCDs Assessment/Plan Subjective: Patient is awake and alert. Objective: Patient was admitted last night for abdominal pain. Patient has a history of liver cirrhosis. He has anasarca. Per CT imaging patient has a very large distended abdomen tight to touch. Patient states he has an umbilical hernia and that his pain is all over his belly. Patient is currently on diuretics with Lasix IV twice a day as well as Aldactone. 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 Patient has been noncompliant. He has a history of substance abuse. He has noncompliant with medical follow-ups. Plan: Patient will need cardiology evaluation. Patient has a history of substance abuse. Patient has liver cirrhosis. Continue diuretics. Patient needs ultrasound of the abdomen for possible paracentesis. Monitor daily labs. Replace electrolytes as needed. GI consult is pending. Plan discussed with: Patient, Other LG MCFARLANE NP Feb 13, 2025 17:50
[2025-02-13 20:00] VITALS: PULSE 65; RESP 18
[2025-02-13 21:02] VITALS: BP 145/77; PULSE 70; RESP 16; TEMP 98; O2SAT 98
[2025-02-13 21:56] VITALS: PULSE 65
[2025-02-13] MEDS: TEMAZEPAM 15 MG CAP PO PRN (23:04)
[2025-02-14] VITALS (8 sets, daily range): BP systolic 98–147; BP diastolic 48–87; PULSE 64–81; RESP 16–20; TEMP 97.6–98.8; O2SAT 96–98
--- NOTE | 2025-02-14 08:34 | DVH ---
US ABDOMEN LIMITED HISTORY: Fluid check for possible paracentesis COMPARISON: US ABDOMEN COMPLETE SONOGRAM on DOS: 09/21/24 TECHNIQUE: Transverse and longitudinal sonographic images were obtained of all four quadrants of the abdomen and pelvis. FINDINGS: IMPRESSION: There is moderate ascites.
[2025-02-14 08:55] LABS: Hematocrit 38.2 % (41.0-53.0); Hemoglobin 13.2 g/dL (13.5-17.5); Mean Corpuscular Hemoglobin 30.6 pg (28.0-32.0); Mean Corpuscular Volume 88.3 fL (80.0-100.0); Nucleated Red Blood Cells % 0.1 %
[2025-02-14 09:02] LABS: INR 1.31 (0.9-1.15); Partial Thromboplastin Time 31.3 SEC (24.5-34.5); Prothrombin Time 13.5 sec (9.3-11.8)
[2025-02-14 09:10] LABS: Alkaline Phosphatase 95 U/L (46-116); Anion Gap 10 (5-15); BUN/Creatinine Ratio 13.9 (10.0-20.0); Blood Urea Nitrogen 11 mg/dL (9-23); Carbon Dioxide 26 mmol/L (20-31); Chloride 107 mmol/L (98-107); Glucose 100 mg/dL (74-106); Potassium 4.0 mmol/L (3.5-5.1); Sodium 143 mmol/L (136-145); Total Protein 6.1 g/dL (5.7-8.2)
[2025-02-14 09:11] LABS: Alanine Aminotransferase 56 U/L (7-40); Albumin 3.0 g/dL (3.2-4.8); Bilirubin, Total 5.5 mg/dL (0.2-1.0); Calcium 8.2 mg/dL (8.7-10.4)
--- NOTE | 2025-02-14 13:59 | DVHINCON2 ---
GI Consult Consult Note GI consult note Date of Consultation: 02/14/2025 Chief Complaint: Abdominal pain and cirrhosis Referring Physician: DENYS MAGDALENO H&P: 69-year-old male admitted with abdominal pain and distention on and off for the last few months but getting worse now. No nausea vomiting. Denies hematemesis. No melena or red blood in stool. Patient admits to history of heavy alcohol use, quit in 1998. No EGD or colonoscopy in past. Per patient has not been seen by medical doctor for many years Past Medical History: DM, liver Past Surgical History: Denies Social History: NO smoking, sober drinking ETOH Family History: Noncontributory Review of Systems: Constitutional: no fever, chill, weight loss HEENT: no eye pain, no hearing loss, no oral lesion, no scleral icterus Heart: no chest pain, no chest pressure Lung: no cough, no dyspnea with exertion Abdomen: see HPI Physical exam: General: NAD, AAOX3 Chest: lung friedman clear to auscultation Heart: RRR, no murmur Abdomen: Moderate-distended, mild generalized tenderness to palpation, +BS Extremities: + pedal edema Labs: Labs Test 02/14/25 08:17 02/12/25 16:42 02/12/25 16:00 02/12/25 14:39 Range/Units White Blood Count 6.5 4.4-10.8 10^3/uL Red Blood Count 4.32 L 4.5-5.90 10^6/uL Hemoglobin 13.2 L 13.5-17.5 g/dL Hematocrit 38.2 L 41.0-53.0 % Mean Corpuscular Volume 88.3 80.0-100.0 fL Mean Corpuscular Hemoglobin 30.6 28.0-32.0 pg Mean Corpuscular Hemoglobin Concent 34.6 32.0-36.0 g/dL Red Cell Distribution Width 15.8 H 11.8-14.3 % Platelet Count 95 L 140-450 10^3/uL Mean Platelet Volume 8.0 6.9-10.8 fL Neutrophils (%) (Auto) 74.3 37.0-80.0 % Lymphocytes (%) (Auto) 13.0 10.0-50.0 % Monocytes (%) (Auto) 9.2 0.0-12.0 % Eosinophils (%) (Auto) 2.8 0.0-7.0 % Basophils (%) (Auto) 0.7 0.0-2.0 % Neutrophils # (Auto) 4.8 1.6-8.6 10 ^3/uL Lymphocytes # (Auto) 0.8 0.4-5.4 10 ^3/uL Monocytes # (Auto) 0.6 0-1.3 10 ^3/uL Eosinophils # (Auto) 0.2 0-0.8 10 ^3/uL Basophils # (Auto) 0 0-0.2 10 ^3/uL Nucleated Red Blood Cells 0.1 % Prothrombin Time 13.5 H 9.3-11.8 sec Prothrombin Time INR 1.31 H 0.9-1.15 Activated Partial Thromboplast Time 31.3 24.5-34.5 SEC Sodium Level 143 136-145 mmol/L Potassium Level 4.0 3.5-5.1 mmol/L Chloride Level 107 98-107 mmol/L Carbon Dioxide Level 26 20-31 mmol/L Anion Gap 10 5-15 Blood Urea Nitrogen 11 9-23 mg/dL Creatinine 0.79 0.700-1.30 mg/dL Glomerular Filtration Rate Calc 108 >90 mL/min BUN/Creatinine Ratio 13.9 10.0-20.0 Serum Glucose 100 74-106 mg/dL Calcium Level 8.2 L 8.7-10.4 mg/dL Total Bilirubin 5.5 H 0.2-1.0 mg/dL Aspartate Amino Transferase (AST) 72 H 13-40 U/L Alanine Aminotransferase (ALT) 56 H 7-40 U/L Alkaline Phosphatase 95 46-116 U/L Total Protein 6.1 5.7-8.2 g/dL Albumin 3.0 L 3.2-4.8 g/dL Ammonia 59 H 11-32 umol/L Lipase 32 12-53 U/L Urine Opiates Screen Neg NEGATIVE Urine Fentanyl Screen Neg NEGATIVE Urine Barbiturates Screen Neg NEGATIVE Urine Phencyclidine Screen Neg NEGATIVE Urine Amphetamines Screen Neg NEGATIVE Urine Benzodiazepines Screen Neg NEGATIVE Urine Cocaine Screen Neg NEGATIVE Urine Cannabinoids Screen Neg NEGATIVE Urine Color Yellow Yellow Urine Clarity Clear Clear Urine pH 6.0 5.0-9.0 Urine Specific [place] 1.026 1.001-1.035 Urine Protein Trace H Negative Urine Ketones Negative Negative Urine Blood 3+ H Negative /uL Urine Nitrite Negative Negative Urine Bilirubin 1+ Negative Urine Urobilinogen Over Negative mg/dL Urine Leukocyte Esterase Trace Negative /uL Urine RBC 60 0 - 3 /hpf Urine Microscopic WBC 5 H 0-3 /HPF Urine Squamous Epithelial Cells None seen <5 /hpf Urine Bacteria None seen None Seen /hpf Urine Mucus Few None Seen Urine Glucose Normal Normal mg/dL Test 02/12/25 11:55 Range/Units Hemoglobin A1c 5.5 <5.7 % A1C Imaging: CT abdomen pelvis IMPRESSION: 1. Cirrhosis with sequelae of portal hypertension including splenomegaly, duane roesophageal varices, and moderate to large volume ascites. 2. Anasarca. 3. Fat and fluid containing umbilical hernia. Ultrasound abdomen FINDINGS: IMPRESSION: There is moderate ascites. Assessment: Liver cirrhosis Ascites History of heavy alcohol use Cholelithiasis Plan: Discussed with Dr. Chahal MELD score of 16 which gives a fair prognosis for patient Lactulose and Lasix Paracentesis pending Monitor labs in a.m. Patient is not a surgical candidate for coli lithiasis due to ongoing symptoms with cirrhosis and ascites at this time Possible outpatient elective EGD and colonoscopy recommended at this time We will continue to monitor patient Thank you for this consult Date of Service: Feb 14, 2025 Billing Provider: LUIS CHAND Common Visit Codes: CONSULT ONLY Consultation Codes: [id number] CONSULT <60MIN LUIS CHAND Feb 14, 2025 13:59
[2025-02-14] MEDS ORDERED: MORPHINE SULFATE 4 MG/ML SYR/VIAL IV PRN ×2 (14:00)
--- NOTE | 2025-02-14 15:54 | DVHPN2 ---
Progress Note Date Seen: Feb 14, 2025 Medical Necessity Reason Pt with a Central, PICC or Fol: No Subjective Review of Systems: CVS:Normal, RESPIRATORY:Normal, GI:Normal, NEURO:Normal Objective vital signs Vital Sign Date Time Temp Pulse Resp B/P (MAP) Pulse Ox O2 Delivery O2 Flow Rate FiO2 02/14/25 13:00 98.2 76 18 127/71 (89) 96 98.2 02/14/25 08:00 Room Air* 0 21 Total Intake and Output 02/13/25 02/13/25 02/14/25 15:00 23:00 07:00 Intake Total 100 ml 100 ml Output Total 1 ml Balance 100 ml 99 ml medications Current Medications Medications Dose Ordered Sig/John Route Start Time Stop Time Status Last Admin Dose Admin Acetaminophen/ Hydrocodone Bitart 1 tab Q4HP PRN PO 02/12/25 16:00 02/13/25 15:23 1 TAB Temazepam 15 mg QHSP PRN PO 02/12/25 16:00 02/13/25 23:04 15 MG Ondansetron HCl 4 mg Q4HP PRN IV 02/12/25 16:00 Docusate Sodium 100 mg BIDPRN PRN PO 02/12/25 16:00 Acetaminophen 650 mg Q6HP PRN PO 02/12/25 16:00 Pantoprazole Sodium 40 mg DAILY IV 02/13/25 10:00 02/14/25 09:19 40 MG Nitroglycerin 0.4 mg Q5MINP PRN SL 02/12/25 16:00 Furosemide 40 mg DAILY IV 02/12/25 18:00 02/14/25 09:19 40 MG Spironolactone 25 mg DAILY PO 02/13/25 10:00 02/14/25 09:19 25 MG Lactulose 30 ml DAILY PO 02/15/25 10:00 Morphine Sulfate 2 mg Q4HPRN PRN IV 02/14/25 14:00 Morphine Sulfate 2 mg Q30M PRN IV 02/14/25 14:00 Examination: GENERAL:Normal, LUNGS:Normal, CVS:Normal, ABDOMEN:Abnormal (severe ascites), SKIN:Normal, NEURO:Normal laboratory and microbiology Laboratory Tests 02/14/25 08:17 Test 02/14/25 08:17 Range/Units Serum Glucose 100 74-106 mg/dL Labs and/or images reviewed: Labs reviewed by me, Image(s) reviewed by me Problem List/Assessment/Plan Problem List/Assessment/Plan Severe Ascites with Abdominal Pain Assessment: Patient presents with severe ascites causing abdominal pain in the setting of underlying liver cirrhosis. CT imaging demonstrates cirrhosis with portal hypertension sequelae including splenomegaly and large volume ascites requiring therapeutic intervention. Plan: - Paracentesis performed today through interventional radiology - IV Lasix 40mg and spironolactone 25mg daily - Continue IV diuretics Liver Cirrhosis with Coagulopathy Assessment: Patient has established liver cirrhosis with associated coagulopathy evidenced by elevated INR of 1.31, indicating impaired hepatic synthetic function. Plan: - Continue to monitor coagulopathy - GI consultation obtained Umbilical Hernia with Pain Assessment: Patient reports pain in the belly area associated with umbilical hernia, likely exacerbated by the presence of severe ascites and increased intra-abdominal pressure. Plan: - Monitor Type 2 Diabetes with Hyperglycemia Assessment: Patient has type 2 diabetes mellitus with current hyperglycemia requiring glycemic management during hospitalization. Plan: - Continue insulin sliding scale - GI consultation for diabetes management Cholelithiasis Assessment: Patient has known cholelithiasis requiring ongoing monitoring in the setting of liver disease. Plan: - Monitor Morbid Obesity Assessment: Patient has morbid obesity which may contribute to multiple comorbidities and complicate management of ascites and other conditions. Plan: - Monitor Plan discussed with: Patient My Orders My Orders Orders - KIM SANTIAGO Procedure Category Date Status Time * Radiologist Consult CONS 02/14/25 Transmitted 07:00 Date of Service: Feb 14, 2025 Billing Provider: VON ALEMAN MD Common Visit Codes: [id number] INP/OBS CARE (MOD) KIM SANTIAGO Feb 14, 2025 15:53
[2025-02-14] MEDS ORDERED: ALBUMIN 25% 100 ML IV ONE (16:15)
[2025-02-14] MEDS: ALBUMIN 25% 50 ML IV ONE (17:36)
[2025-02-14] MEDS: ALBUMIN 25% 100 ML IV ONE (18:19)
--- NOTE | 2025-02-14 18:44 | DVH ---
PROCEDURE: ULTRASOUND GUIDED PARACENTESIS HISTORY: 49 Male requiring paracentesis. TECHNIQUE: The risks and benefits of the procedure including but not limited to bleeding, infection and injury to abdominal organs were explained to the patient and written informed consent was obtained. Optimal site for puncture was determined using ultrasound and the area sterilized and draped. Using a 5 [place] auctionpointe[employer] catheter, paracentesis was performed in the right lower abdomen. Approximately 10.5 liters of straw colored fluid was removed. The patient tolerated the procedure well. There were no immediate complications. IMPRESSION: Ultrasound-guided paracentesis with no immediate complications.
[2025-02-15 05:00] VITALS: BP 120/74; PULSE 68; RESP 18; TEMP 99.3; O2SAT 95
[2025-02-15 07:27] LABS: Alkaline Phosphatase 83 U/L (46-116); Anion Gap 8 (5-15); BUN/Creatinine Ratio 13.2 (10.0-20.0); Blood Urea Nitrogen 12 mg/dL (9-23); Carbon Dioxide 28 mmol/L (20-31); Potassium 3.9 mmol/L (3.5-5.1); Sodium 143 mmol/L (136-145)
[2025-02-15 07:30] LABS: Alanine Aminotransferase 43 U/L (7-40); Albumin 2.8 g/dL (3.2-4.8); Bilirubin, Total 3.9 mg/dL (0.2-1.0); Calcium 8.1 mg/dL (8.7-10.4); Chloride 107 mmol/L (98-107); Glucose 139 mg/dL (74-106); Total Protein 5.5 g/dL (5.7-8.2)
[2025-02-15 09:00] VITALS: BP 126/86; PULSE 68; RESP 16; TEMP 98.5; O2SAT 95
[2025-02-15] MEDS: LACTULOSE 20Gm/30ML SOLN PO SCH (09:20)
[2025-02-15] MEDS ORDERED: LACTULOSE 20Gm/30ML SOLN PO SCH (10:00)
--- NOTE | 2025-02-15 10:44 | DVHPN2 ---
Progress Note Date Seen: Feb 15, 2025 Medical Necessity Reason Pt with a Central, PICC or Fol: No Subjective Review of Systems: CVS:Normal, RESPIRATORY:Normal, GI:Normal Objective vital signs Vital Sign Date Time Temp Pulse Resp B/P (MAP) Pulse Ox O2 Delivery O2 Flow Rate FiO2 02/15/25 09:19 127/85 02/15/25 09:00 98.5 68 16 95 98.5 02/14/25 20:00 Room Air* 0 21 Total Intake and Output 02/14/25 02/14/25 02/15/25 15:00 23:00 07:00 Intake Total 1540 ml 0 ml Balance 1540 ml 0 ml medications Current Medications Medications Dose Ordered Sig/John Route Start Time Stop Time Status Last Admin Dose Admin Acetaminophen/ Hydrocodone Bitart 1 tab Q4HP PRN PO 02/12/25 16:00 02/13/25 15:23 1 TAB Temazepam 15 mg QHSP PRN PO 02/12/25 16:00 02/13/25 23:04 15 MG Ondansetron HCl 4 mg Q4HP PRN IV 02/12/25 16:00 Docusate Sodium 100 mg BIDPRN PRN PO 02/12/25 16:00 Acetaminophen 650 mg Q6HP PRN PO 02/12/25 16:00 Pantoprazole Sodium 40 mg DAILY IV 02/13/25 10:00 02/15/25 09:17 40 MG Nitroglycerin 0.4 mg Q5MINP PRN SL 02/12/25 16:00 Furosemide 40 mg DAILY IV 02/12/25 18:00 02/15/25 09:19 40 MG Spironolactone 25 mg DAILY PO 02/13/25 10:00 02/15/25 09:19 25 MG Morphine Sulfate 2 mg Q4HPRN PRN IV 02/14/25 14:00 Morphine Sulfate 2 mg Q30M PRN IV 02/14/25 14:00 Rifaximin 550 mg BID PO 02/15/25 10:00 02/15/25 09:28 550 MG Lactulose 30 ml TID PO 02/15/25 09:15 02/15/25 09:20 30 ML Albumin Human 50 ml @ 100 mls/hr Q8H IV 02/15/25 10:00 02/16/25 02:29 Examination: GENERAL:Normal, LUNGS:Normal, CVS:Normal, ABDOMEN:Normal laboratory and microbiology Laboratory Tests 02/15/25 06:36 02/14/25 08:17 Test 02/15/25 06:36 Range/Units Serum Glucose 139 H 74-106 mg/dL Labs and/or images reviewed: Labs reviewed by me, Image(s) reviewed by me Problem List/Assessment/Plan Problem List/Assessment/Plan Anil Rojas is a patient with liver cirrhosis who recently underwent paracentesis for severe ascites with abdominal pain, during which 10,500 mL of fluid was removed. The patient has been experiencing significant abdominal distension, which has notably improved following the paracentesis procedure. He continues to have abdominal pain associated with the ascites. The patient remains adherent to his current diuretic regimen and is responding well to treatment. He inquired about exercise recommendations during the visit. Severe Ascites with Abdominal Pain Assessment: Patient is status post paracentesis with removal of 10,500 mL of fluid. Abdominal distension has significantly improved following the procedure. Patient is responding well to IV diuretics. Plan: - Continue Lasix 40 mg daily - Continue spironolactone, increase from 25 mg daily to 100 mg daily - Continue current treatment approach Liver Cirrhosis with Coagulopathy Assessment: Patient has liver cirrhosis with associated coagulopathy. Current INR is 1.31. Plan: - Continue current treatment for liver cirrhosis with coagulopathy - Monitor INR Hyperammonemia Assessment: Hyperammonemia related to liver cirrhosis with ammonia level of 114. Plan: - Start rifaximin 550 mg BID - Increase lactulose to 30 mL TID - Continue IV albumin infusions Umbilical Hernia with Pain Assessment: Patient has umbilical hernia with associated pain requiring monitoring. Plan: - Monitor for umbilical hernia with pain Type 2 Diabetes with Hypoglycemia Assessment: Patient has type 2 diabetes complicated by hypoglycemia requiring ongoing monitoring. Plan: - Continue insulin sliding scale - Monitor for hypoglycemia Cholelithiasis Assessment: Patient has cholelithiasis requiring monitoring. Plan: - Monitor cholelithiasis Morbid Obesity Assessment: Patient has morbid obesity requiring ongoing monitoring. Plan: - Monitor morbid obesity Plan discussed with: Patient My Orders My Orders Orders - KIM SANTIAGO Procedure Category Date Status Time Rifaximin (Xifaxan) PHA 02/15/25 In Process 10:00 Lactulose Oral PHA 02/15/25 In Process 09:15 Albumin 25% (Albutein) PHA 02/15/25 In Process 10:00 Acute Hepatitis Panel LAB 02/15/25 Logged 10:36 Spironolactone PHA 02/15/25 Transmitted (Aldactone) 10:45 Date of Service: Feb 15, 2025 Billing Provider: VON ALEMAN MD Common Visit Codes: [id number] INP/OBS CARE (MOD), [id number] INP/OBS CARE (HIGH) KIM SANTIAGO INCLUSION SPECIALIST Feb 15, 2025 10:44
[2025-02-15 13:00] VITALS: BP 120/72; PULSE 72; RESP 17; TEMP 98.4; O2SAT 95
[2025-02-15 17:00] VITALS: BP 135/77; PULSE 71; RESP 17; TEMP 98.5; O2SAT 95
[2025-02-15] MEDS: ALBUMIN 25% 50 ML IV SCH (17:45)
[2025-02-15 20:00] VITALS: PULSE 68; PULSE 71; RESP 18; O2SAT 96
[2025-02-15 21:00] VITALS: BP 115/68; PULSE 68; RESP 18; TEMP 98.8; O2SAT 96
--- NOTE | 2025-02-15 21:47 | DVHPN2 ---
Progress Note - Dictate Date Seen: Feb 15, 2025 Medical Necessity Reason Pt with a Central, PICC or Fol: No Subjective No new complaints, patient resting comfortably Patient underwent paracentesis yesterday and 10 L of ascitic fluid was removed Patient has prior history of alcohol abuse; denies recent alcohol use Patient presented to the hospital because of worsening pedal edema and scrotal and penile swelling Liver enzymes are trending down Ammonia level elevated to 114 vital signs Vital Sign Date Time Temp Pulse Resp B/P (MAP) Pulse Ox O2 Delivery O2 Flow Rate FiO2 02/15/25 21:00 98.8 68 18 115/68 (84) 96 98.8 02/15/25 07:30 Room Air* 0 21 Total Intake and Output 02/14/25 02/14/25 02/15/25 15:00 23:00 07:00 Intake Total 1540 ml 0 ml Balance 1540 ml 0 ml medications Current Medications Medications Dose Ordered Sig/John Route Start Time Stop Time Status Last Admin Dose Admin Acetaminophen/ Hydrocodone Bitart 1 tab Q4HP PRN PO 02/12/25 16:00 02/13/25 15:23 1 TAB Temazepam 15 mg QHSP PRN PO 02/12/25 16:00 02/13/25 23:04 15 MG Ondansetron HCl 4 mg Q4HP PRN IV 02/12/25 16:00 Docusate Sodium 100 mg BIDPRN PRN PO 02/12/25 16:00 Acetaminophen 650 mg Q6HP PRN PO 02/12/25 16:00 Pantoprazole Sodium 40 mg DAILY IV 02/13/25 10:00 02/15/25 09:17 40 MG Nitroglycerin 0.4 mg Q5MINP PRN SL 02/12/25 16:00 Furosemide 40 mg DAILY IV 02/12/25 18:00 02/15/25 09:19 40 MG Morphine Sulfate 2 mg Q4HPRN PRN IV 02/14/25 14:00 Morphine Sulfate 2 mg Q30M PRN IV 02/14/25 14:00 Rifaximin 550 mg BID PO 02/15/25 10:00 02/15/25 21:11 550 MG Lactulose 30 ml TID PO 02/15/25 09:15 02/15/25 21:11 30 ML Albumin Human 50 ml @ 100 mls/hr Q8H IV 02/15/25 10:00 02/16/25 02:29 02/15/25 17:45 100 MLS/HR Spironolactone 100 mg DAILY PO 02/16/25 10:00 objective General: NAD, AAOX3 Chest: lung friedman clear to auscultation Heart: RRR, no murmur Abdomen: Mild distended, mild generalized tenderness to palpation, +BS Extremities: 3+ pedal edema laboratory and microbiology Laboratory Tests 02/15/25 06:36 02/14/25 08:17 Test 02/15/25 06:36 Range/Units Serum Glucose 139 H 74-106 mg/dL Problems(with codes): (1) Cirrhosis of liver with ascites (2) Decompensated hepatic cirrhosis (3) Elevated liver enzymes (4) Pedal edema (5) Ascites Prognosis A/P Decompensated liver cirrhosis with ascites and pedal edema Meld score is 16 points suggestive of fair prognosis Ascitic fluid does not meet criteria for SBP, g stain negative Patient is on IV albumin, Lasix, spironolactone He is getting lactulose and Xifaxan Continue to monitor labs and supportive care Plan discussed with: Patient JOE NEWBERRY MD Feb 15, 2025 21:47
[2025-02-16] VITALS (9 sets, daily range): BP systolic 116–145; BP diastolic 58–88; PULSE 67–115; RESP 16–18; TEMP 98.1–98.7; O2SAT 93–97
[2025-02-16 05:53] LABS: Hematocrit 36.5 % (41.0-53.0); Hemoglobin 12.3 g/dL (13.5-17.5); Mean Corpuscular Hemoglobin 29.8 pg (28.0-32.0); Mean Corpuscular Volume 88.2 fL (80.0-100.0); Nucleated Red Blood Cells % 0.0 %
[2025-02-16 06:01] LABS: Alkaline Phosphatase 80 U/L (46-116); Anion Gap 9 (5-15); BUN/Creatinine Ratio 16.7 (10.0-20.0); Blood Urea Nitrogen 14 mg/dL (9-23); Carbon Dioxide 27 mmol/L (20-31); Chloride 105 mmol/L (98-107); Potassium 3.8 mmol/L (3.5-5.1); Sodium 141 mmol/L (136-145)
[2025-02-16 06:02] LABS: Alanine Aminotransferase 44 U/L (7-40); Albumin 2.8 g/dL (3.2-4.8); Bilirubin, Total 3.4 mg/dL (0.2-1.0); Calcium 8.1 mg/dL (8.7-10.4); Glucose 133 mg/dL (74-106); Total Protein 5.4 g/dL (5.7-8.2)
[2025-02-16] MEDS: SPIRONOLACTONE 25 MG TAB PO SCH (09:40)
[2025-02-16] MEDS: LACTULOSE 20Gm/30ML SOLN PO SCH (11:39)
--- NOTE | 2025-02-16 12:45 | DVHPN2 ---
Progress Note Date Seen: Feb 16, 2025 Medical Necessity Reason Pt with a Central, PICC or Fol: No Subjective Review of Systems: CVS:Normal, RESPIRATORY:Normal, GI:Normal Objective vital signs Vital Sign Date Time Temp Pulse Resp B/P (MAP) Pulse Ox O2 Delivery O2 Flow Rate FiO2 02/16/25 11:39 145/85 02/16/25 08:33 98.1 71 16 94 98.1 02/16/25 07:30 Room Air* 0 21 Total Intake and Output 02/15/25 02/15/25 02/16/25 15:00 23:00 07:00 Intake Total 850 ml 850 ml Balance 850 ml 850 ml medications Current Medications Medications Dose Ordered Sig/John Route Start Time Stop Time Status Last Admin Dose Admin Acetaminophen/ Hydrocodone Bitart 1 tab Q4HP PRN PO 02/12/25 16:00 02/13/25 15:23 1 TAB Temazepam 15 mg QHSP PRN PO 02/12/25 16:00 02/13/25 23:04 15 MG Ondansetron HCl 4 mg Q4HP PRN IV 02/12/25 16:00 Docusate Sodium 100 mg BIDPRN PRN PO 02/12/25 16:00 Acetaminophen 650 mg Q6HP PRN PO 02/12/25 16:00 Pantoprazole Sodium 40 mg DAILY IV 02/13/25 10:00 02/16/25 11:38 40 MG Nitroglycerin 0.4 mg Q5MINP PRN SL 02/12/25 16:00 Furosemide 40 mg DAILY IV 02/12/25 18:00 02/16/25 11:39 40 MG Morphine Sulfate 2 mg Q4HPRN PRN IV 02/14/25 14:00 Morphine Sulfate 2 mg Q30M PRN IV 02/14/25 14:00 Rifaximin 550 mg BID PO 02/15/25 10:00 02/16/25 09:38 550 MG Spironolactone 100 mg DAILY PO 02/16/25 10:00 02/16/25 09:40 100 MG Lactulose 30 ml QID PO 02/16/25 12:00 02/16/25 11:39 30 ML Examination: GENERAL:Normal, HEENT:Normal, LUNGS:Normal, CVS:Normal, ABDOMEN:Normal, SKIN:Normal, NEURO:Normal laboratory and microbiology Laboratory Tests 02/16/25 04:55 Test 02/16/25 04:55 Range/Units Serum Glucose 133 H 74-106 mg/dL Microbiology Date/Time Source Procedure Growth Status 02/14/25 15:30 Ascities Fluid Gram Stain - Final Resulted 02/14/25 15:30 Ascities Fluid Body Fluid Culture - Preliminary No growth Resulted Labs and/or images reviewed: Image(s) reviewed by me Problem List/Assessment/Plan Problem List/Assessment/Plan will continue with current treatment Severe Ascites with Abdominal Pain Assessment: Patient is status post paracentesis with removal of 10,500 mL of fluid. Abdominal distension has significantly improved following the procedure. Patient is responding well to IV diuretics. Plan: - Continue Lasix 40 mg daily - Continue spironolactone, increase from 25 mg daily to 100 mg daily - Continue current treatment approach Liver Cirrhosis with Coagulopathy Assessment: Patient has liver cirrhosis with associated coagulopathy. Current INR is 1.31. Plan: - Continue current treatment for liver cirrhosis with coagulopathy - Monitor INR Hyperammonemia Assessment: Hyperammonemia related to liver cirrhosis with ammonia level of 114. Plan: - Start rifaximin 550 mg BID - Increase lactulose to 30 mL TID - Continue IV albumin infusions Umbilical Hernia with Pain Assessment: Patient has umbilical hernia with associated pain requiring monitoring. Plan: - Monitor for umbilical hernia with pain Type 2 Diabetes with Hypoglycemia Assessment: Patient has type 2 diabetes complicated by hypoglycemia requiring ongoing monitoring. Plan: - Continue insulin sliding scale - Monitor for hypoglycemia Cholelithiasis Assessment: Patient has cholelithiasis requiring monitoring. Plan: - Monitor cholelithiasis Morbid Obesity Assessment: Patient has morbid obesity requiring ongoing monitoring. Plan: - Monitor morbid obesity Plan discussed with: Patient My Orders My Orders Orders - KIM SANTIAGO Procedure Category Date Status Time Lactulose Oral PHA 02/16/25 In Process 12:00 Cardiac DIET 02/16/25 Transmitted Diet-2gna,Lofat,Lochol Breakfast Date of Service: Feb 16, 2025 Billing Provider: VON ALEMAN MD Common Visit Codes: [id number] INP/OBS CARE (MOD) KIM SANTIAGO Feb 16, 2025 12:44
--- NOTE | 2025-02-16 13:44 | DVH ---
US ABDOMEN LIMITED HISTORY: r.o ascites COMPARISON: US ABDOMEN LIMITED on DOS: 02/14/25, US ABDOMEN COMPLETE SONOGRAM on DOS: 09/21/24 TECHNIQUE: Transverse and longitudinal sonographic images were obtained of all four quadrants of the abdomen and pelvis. FINDINGS: IMPRESSION: There is small amount of ascites.
--- NOTE | 2025-02-16 15:52 | DVHPN2 ---
Progress Note Date Seen: Feb 16, 2025 Resident Creating Document: YESSICA ENGLAND RESIDENT Medical Necessity Reason Pt with a Central, PICC or Fol: No Subjective Review of Systems Passing gas. No bowel movement. Ammonia 112. Lactulose enema. Status post paracentesis 10 L. Objective vital signs Vital Sign Date Time Temp Pulse Resp B/P (MAP) Pulse Ox O2 Delivery O2 Flow Rate FiO2 02/16/25 13:00 98.6 74 16 139/72 (94) 93 98.6 02/16/25 07:30 Room Air* 0 21 Total Intake and Output 02/15/25 02/15/25 02/16/25 15:00 23:00 07:00 Intake Total 850 ml 850 ml Balance 850 ml 850 ml medications Current Medications Medications Dose Ordered Sig/John Route Start Time Stop Time Status Last Admin Dose Admin Acetaminophen/ Hydrocodone Bitart 1 tab Q4HP PRN PO 02/12/25 16:00 02/13/25 15:23 1 TAB Temazepam 15 mg QHSP PRN PO 02/12/25 16:00 02/13/25 23:04 15 MG Ondansetron HCl 4 mg Q4HP PRN IV 02/12/25 16:00 Docusate Sodium 100 mg BIDPRN PRN PO 02/12/25 16:00 Acetaminophen 650 mg Q6HP PRN PO 02/12/25 16:00 Pantoprazole Sodium 40 mg DAILY IV 02/13/25 10:00 02/16/25 11:38 40 MG Nitroglycerin 0.4 mg Q5MINP PRN SL 02/12/25 16:00 Furosemide 40 mg DAILY IV 02/12/25 18:00 02/16/25 11:39 40 MG Morphine Sulfate 2 mg Q4HPRN PRN IV 02/14/25 14:00 Morphine Sulfate 2 mg Q30M PRN IV 02/14/25 14:00 Rifaximin 550 mg BID PO 02/15/25 10:00 02/16/25 09:38 550 MG Spironolactone 100 mg DAILY PO 02/16/25 10:00 02/16/25 09:40 100 MG Lactulose 30 ml QID PO 02/16/25 12:00 02/16/25 11:39 30 ML Examination Morbidly obese male patient lying in the bed, no acute distress General: Morbidly obese, afebrile, palor, mucosae are moist. Icterus. Cardiovascular: Regular S1 and S2. No murmurs, gallops or rubs. No JVD elevation. Pedal edema. Respiratory: Bilateral decreased air entry, no wheezing Abdomen: Soft, nontender, nondistended, normoactive bowel sounds, no rebound tenderness, organomegaly could not be assessed Genitourinary: Deferred MSK/skin: Mobilizes 4 limbs. Skin is dry and warm Neurological: No motor, no sensitive deficits, normal speech. Pupils are isocoric and reactive. laboratory and microbiology Laboratory Tests 02/16/25 04:55 Test 02/16/25 04:55 Range/Units Serum Glucose 133 H 74-106 mg/dL Microbiology Date/Time Source Procedure Growth Status 02/14/25 15:30 Ascities Fluid Gram Stain - Final Resulted 02/14/25 15:30 Ascities Fluid Body Fluid Culture - Preliminary No growth Resulted Labs and/or images reviewed: Labs reviewed by me, Image(s) reviewed by me Problem List/Assessment/Plan Problem List/Assessment/Plan Decompensated Liver cirrhosis with ascites status post paracentesis Likely alcoholic hepatitis-meld score 16 Hyperammonemia Former alcohol use Thrombocytopenia Morbid opacity Severe protein calorie malnutrition Plan: Recommendation: Dr. Chahal Continue lactulose enema. Continue lactulose p.o q.i.d.., target 2 3 bowel movements. Status post 10 later clear river colored fluid paracentesis on 02/14, completed IV albumin Criteria for SBP not met per ascitic fluid studies Continue lactulose, rivaroxaban, spironolactone, Lasix, Protonix Monitor CMPs Fluid restriction Strict I&Os Plan discussed with patient in which all questions answered Case discussed with Dr. Chahal Plan discussed with: Patient YESSICA ENGLAND RESIDENT Feb 16, 2025 15:52
[2025-02-16] MEDS: LACTULOSE 10g/15ml SOLN 473ML PR ONE (16:00)
[2025-02-17] VITALS (8 sets, daily range): BP systolic 113–142; BP diastolic 66–88; PULSE 65–80; RESP 16–19; TEMP 97.7–98.9; O2SAT 96–98
[2025-02-17 07:21] LABS: Alkaline Phosphatase 81 U/L (46-116); Anion Gap 6 (5-15); BUN/Creatinine Ratio 14.6 (10.0-20.0); Blood Urea Nitrogen 13 mg/dL (9-23); Carbon Dioxide 28 mmol/L (20-31); Potassium 3.9 mmol/L (3.5-5.1); Sodium 142 mmol/L (136-145); Total Protein 5.7 g/dL (5.7-8.2)
[2025-02-17 07:23] LABS: Alanine Aminotransferase 44 U/L (7-40); Albumin 2.9 g/dL (3.2-4.8); Bilirubin, Total 3.8 mg/dL (0.2-1.0); Calcium 8.4 mg/dL (8.7-10.4); Chloride 108 mmol/L (98-107); Glucose 118 mg/dL (74-106)
--- NOTE | 2025-02-17 08:01 | DVHPN2 ---
Progress Note - Dictate Date Seen: Feb 17, 2025 Medical Necessity Reason Pt with a Central, PICC or Fol: No vital signs Vital Sign Date Time Temp Pulse Resp B/P (MAP) Pulse Ox O2 Delivery O2 Flow Rate FiO2 02/17/25 05:00 98.3 69 19 126/74 (91) 96 98.3 02/16/25 20:00 Room Air* 0 21 Total Intake and Output 02/16/25 02/16/25 02/17/25 15:00 23:00 07:00 Intake Total 770 ml 550 ml Balance 770 ml 550 ml medications Current Medications Medications Dose Ordered Sig/John Route Start Time Stop Time Status Last Admin Dose Admin Acetaminophen/ Hydrocodone Bitart 1 tab Q4HP PRN PO 02/12/25 16:00 02/13/25 15:23 1 TAB Temazepam 15 mg QHSP PRN PO 02/12/25 16:00 02/13/25 23:04 15 MG Ondansetron HCl 4 mg Q4HP PRN IV 02/12/25 16:00 Docusate Sodium 100 mg BIDPRN PRN PO 02/12/25 16:00 Acetaminophen 650 mg Q6HP PRN PO 02/12/25 16:00 Pantoprazole Sodium 40 mg DAILY IV 02/13/25 10:00 02/16/25 11:38 40 MG Nitroglycerin 0.4 mg Q5MINP PRN SL 02/12/25 16:00 Furosemide 40 mg DAILY IV 02/12/25 18:00 02/16/25 11:39 40 MG Morphine Sulfate 2 mg Q4HPRN PRN IV 02/14/25 14:00 Morphine Sulfate 2 mg Q30M PRN IV 02/14/25 14:00 Rifaximin 550 mg BID PO 02/15/25 10:00 02/16/25 21:50 550 MG Spironolactone 100 mg DAILY PO 02/16/25 10:00 02/16/25 09:40 100 MG Lactulose 30 ml QID PO 02/16/25 12:00 02/17/25 07:55 30 ML objective General Appearance: alert, no distress HEENT: EOMI, PERRLA, normal external inspect of ears, no icterus, no nasal drainage Neck: no carotid bruit, no jugular venous distention (JVD), no lymphadenopathy Chest: normal thorax Respiratory: clear to auscultation, normal air movement Cardiovascular: regular rate and rhythm, no diastolic murmur, no jugular venous distention (JVD), no rub, no systolic murmur Abdominal: soft, no hepatomegaly, no mass, no splenomegaly, no tenderness Genitourinary: grossly normal external Musculoskeletal: no joint tenderness, no swelling Extremities: normal pulses, no calf tenderness, no clubbing, no cyanosis, no edema Skin: no bruising, no jaundice, no rash Neurological: alert, No focal deficit laboratory and microbiology Laboratory Tests 02/17/25 06:22 02/16/25 04:55 Test 02/17/25 06:22 Range/Units Serum Glucose 118 H 74-106 mg/dL Problem List 1. Cirrhosis of the liver Monitor, GI consult, diuretics 2. Morbid obesity Monitor 3. Diabetes type 2 and hyperglycemia Monitor, insulin sliding scale, HgbA1c 4. Thrombocytopenia Monitor, urine drug screen 5. Cholelithiasis Monitor, GI consult, SCDs Assessment/Plan Subjective: Patient is awake and alert. Objective: Patient was admitted for anasarca and ascites. Patient has a history of liver cirrhosis. Patient hepatitis C was positive. Patient is status post paracentesis with 10.5 L of fluid removed. Patient has persistent hyperammonemia. Ammonia level is 135. Patient is on lactulose 30 mL 4 times a day. Patient has a history of diabetes and is currently on insulin sliding scale. Repeat ultrasound of abdomen shows a small amount of ascites. Patient continues to have +4 pitting edema to his lower extremities. Plan: Continue current treatment. GI recommendations appreciated. Patient has positive hepatitis C antibody. Continue lactulose for hyperammonemia. Monitor daily labs. Plan discussed with: Patient, Other LG MCFARLANE NP Feb 17, 2025 08:01
[2025-02-17] MEDS: POTASSIUM CHL 20 Meq TABLET PO ONE (09:33)
[2025-02-17 10:12] LABS: Hepatitis B Surface Antigen Negative (Negative)
[2025-02-17 10:26] LABS: Hepatitis C Antibody Positive (Negative)
[2025-02-17] MEDS: LACTULOSE 20Gm/30ML SOLN PO SCH ×2 (12:10→18:30)
[2025-02-17] MEDS: LACTULOSE 10g/15ml SOLN 473ML PR ONE (14:54)
--- NOTE | 2025-02-17 15:00 | DVHPN2 ---
Progress Note Date Seen: Feb 17, 2025 Resident Creating Document: YESSICA ENGLAND RESIDENT Medical Necessity Reason Pt with a Central, PICC or Fol: No Subjective Review of Systems Patient seen and examined. A&O x4, passing gas. One bowel movement. Patient has no clinical signs of hepatic encephalopathy. Ammonia trended up to 135. Objective vital signs Vital Sign Date Time Temp Pulse Resp B/P (MAP) Pulse Ox O2 Delivery O2 Flow Rate FiO2 02/17/25 13:00 98.9 73 16 142/73 (96) 97 98.9 02/17/25 08:00 Room Air* 0 21 Total Intake and Output 02/16/25 02/16/25 02/17/25 15:00 23:00 07:00 Intake Total 770 ml 550 ml Balance 770 ml 550 ml medications Current Medications Medications Dose Ordered Sig/John Route Start Time Stop Time Status Last Admin Dose Admin Acetaminophen/ Hydrocodone Bitart 1 tab Q4HP PRN PO 02/12/25 16:00 02/13/25 15:23 1 TAB Temazepam 15 mg QHSP PRN PO 02/12/25 16:00 02/13/25 23:04 15 MG Ondansetron HCl 4 mg Q4HP PRN IV 02/12/25 16:00 Docusate Sodium 100 mg BIDPRN PRN PO 02/12/25 16:00 Acetaminophen 650 mg Q6HP PRN PO 02/12/25 16:00 Pantoprazole Sodium 40 mg DAILY IV 02/13/25 10:00 02/17/25 09:33 40 MG Nitroglycerin 0.4 mg Q5MINP PRN SL 02/12/25 16:00 Furosemide 40 mg DAILY IV 02/12/25 18:00 02/17/25 09:33 40 MG Morphine Sulfate 2 mg Q4HPRN PRN IV 02/14/25 14:00 Morphine Sulfate 2 mg Q30M PRN IV 02/14/25 14:00 Rifaximin 550 mg BID PO 02/15/25 10:00 02/17/25 09:34 550 MG Spironolactone 100 mg DAILY PO 02/16/25 10:00 02/17/25 09:33 100 MG Lactulose 60 ml QID PO 02/17/25 12:00 02/17/25 12:10 60 ML Examination Morbidly obese male patient lying in the bed, no acute distress General: Morbidly obese, afebrile, palor, mucosae are moist. Icterus. Cardiovascular: Regular S1 and S2. No murmurs, gallops or rubs. No JVD elevation. Pedal edema. Respiratory: Bilateral decreased air entry, no wheezing Abdomen: Soft, nontender, nondistended, normoactive bowel sounds, no rebound tenderness, organomegaly could not be assessed Genitourinary: Deferred MSK/skin: Mobilizes 4 limbs. Skin is dry and warm Neurological: No motor, no sensitive deficits, normal speech. Pupils are isocoric and reactive. laboratory and microbiology Laboratory Tests 02/17/25 06:22 02/16/25 04:55 Test 02/17/25 06:22 Range/Units Serum Glucose 118 H 74-106 mg/dL Microbiology Date/Time Source Procedure Growth Status 02/14/25 15:30 Ascities Fluid Gram Stain - Final Resulted 02/14/25 15:30 Ascities Fluid Body Fluid Culture - Preliminary No growth Resulted Labs and/or images reviewed: Labs reviewed by me, Image(s) reviewed by me Problem List/Assessment/Plan Problem List/Assessment/Plan Decompensated Liver cirrhosis with ascites status post paracentesis Likely alcoholic hepatitis-meld score 16 Chronic hepatitis-C, Positive hep C status History of IV drug use 1996 History of incarceration Hyperammonemia Former alcohol use Thrombocytopenia Morbid opacity Severe protein calorie malnutrition Plan: Recommendation: Dr. Chahal Continue lactulose enema. Continue lactulose 30 mL p.o q.i.d.., target 2 3 bowel movements. Status post 10 later clear river colored fluid paracentesis on 02/14, completed IV albumin Ammonia trended up, patient has no signs of hepatic encephalopathy at this time Criteria for SBP not met per ascitic fluid studies Continue lactulose, rivaroxaban, spironolactone, Lasix, Protonix Follow up with the AFP Monitor CMPs Fluid restriction Strict I&Os Followed outpatient with GI/hepatology for hep C Plan discussed with patient in which all questions answered Case discussed with Dr. Chahal Plan discussed with: Patient, Other (Nurse) My Orders My Orders Orders - YESSICA ENGLAND RESIDENT Procedure Category Date Status Time Strict I & O FARIDA 02/16/25 In Process 15:51 Strict Aspiration FARIDA 02/16/25 In Process Precautions 15:51 Lactulose Oral PHA 02/17/25 In Process 12:00 YESSICA ENGLAND RESIDENT Feb 17, 2025 15:00
[2025-02-18] VITALS (8 sets, daily range): BP systolic 107–152; BP diastolic 53–88; PULSE 72–76; RESP 17–20; TEMP 97.9–98.3; O2SAT 95–98
[2025-02-18 07:38] LABS: Alkaline Phosphatase 80 U/L (46-116); BUN/Creatinine Ratio 17.6 (10.0-20.0); Blood Urea Nitrogen 15 mg/dL (9-23); Carbon Dioxide 27 mmol/L (20-31)
[2025-02-18 07:41] LABS: Alanine Aminotransferase 45 U/L (7-40); Albumin 2.8 g/dL (3.2-4.8); Bilirubin, Total 4.0 mg/dL (0.2-1.0); Calcium 8.4 mg/dL (8.7-10.4); Glucose 132 mg/dL (74-106); Total Protein 5.7 g/dL (5.7-8.2)
[2025-02-18 07:47] LABS: Anion Gap 9 (5-15); Chloride 106 mmol/L (98-107); Potassium 3.9 mmol/L (3.5-5.1); Sodium 141 mmol/L (136-145)
--- NOTE | 2025-02-18 13:15 | DVHPN2 ---
Progress Note Date Seen: Feb 18, 2025 Resident Creating Document: YESSICA ENGLAND RESIDENT Medical Necessity Reason Pt with a Central, PICC or Fol: No Subjective Review of Systems 1 large bowel movement overnight, no acute distress, A&O x4 Objective vital signs Vital Sign Date Time Temp Pulse Resp B/P (MAP) Pulse Ox O2 Delivery O2 Flow Rate FiO2 02/18/25 09:23 152/86 02/18/25 08:00 74 20 97 Room Air* 0 21 02/18/25 05:00 98.3 98.3 Total Intake and Output 02/17/25 02/17/25 02/18/25 15:00 23:00 07:00 Intake Total 2020 ml 400 ml Output Total 2300 ml 750 ml Balance -280 ml -350 ml medications Current Medications Medications Dose Ordered Sig/John Route Start Time Stop Time Status Last Admin Dose Admin Acetaminophen/ Hydrocodone Bitart 1 tab Q4HP PRN PO 02/12/25 16:00 02/13/25 15:23 1 TAB Temazepam 15 mg QHSP PRN PO 02/12/25 16:00 02/13/25 23:04 15 MG Ondansetron HCl 4 mg Q4HP PRN IV 02/12/25 16:00 Docusate Sodium 100 mg BIDPRN PRN PO 02/12/25 16:00 Acetaminophen 650 mg Q6HP PRN PO 02/12/25 16:00 Pantoprazole Sodium 40 mg DAILY IV 02/13/25 10:00 02/18/25 09:22 40 MG Nitroglycerin 0.4 mg Q5MINP PRN SL 02/12/25 16:00 Furosemide 40 mg DAILY IV 02/12/25 18:00 02/18/25 09:23 40 MG Morphine Sulfate 2 mg Q4HPRN PRN IV 02/14/25 14:00 Morphine Sulfate 2 mg Q30M PRN IV 02/14/25 14:00 Rifaximin 550 mg BID PO 02/15/25 10:00 02/18/25 09:23 550 MG Spironolactone 100 mg DAILY PO 02/16/25 10:00 02/18/25 09:23 100 MG Lactulose 30 ml QID PO 02/17/25 18:00 02/18/25 12:03 30 ML Examination Morbidly obese male patient lying in the bed, no acute distress General: Morbidly obese, afebrile, palor, mucosae are moist. Icterus. Cardiovascular: Regular S1 and S2. No murmurs, gallops or rubs. No JVD elevation. Pedal edema. Respiratory: Bilateral decreased air entry, no wheezing Abdomen: Soft, nontender, nondistended, normoactive bowel sounds, no rebound tenderness, organomegaly could not be assessed Genitourinary: Deferred MSK/skin: Mobilizes 4 limbs. Skin is dry and warm Neurological: No motor, no sensitive deficits, normal speech. Pupils are isocoric and reactive. laboratory and microbiology Laboratory Tests 02/18/25 06:18 02/16/25 04:55 Test 02/18/25 06:18 Range/Units Serum Glucose 132 H 74-106 mg/dL Microbiology Date/Time Source Procedure Growth Status 02/14/25 15:30 Ascities Fluid Gram Stain - Final Resulted 02/14/25 15:30 Ascities Fluid Body Fluid Culture - Preliminary No growth Resulted Labs and/or images reviewed: Labs reviewed by me, Image(s) reviewed by me Problem List/Assessment/Plan Problem List/Assessment/Plan Decompensated Liver cirrhosis with ascites status post paracentesis Likely alcoholic hepatitis-meld score 16 Chronic hepatitis-C, Positive hep C status History of IV drug use 1996 History of incarceration Hyperammonemia Former alcohol use Thrombocytopenia Morbid opacity Severe protein calorie malnutrition Plan: Recommendation: Dr. Chahal Ammonia trending down, Continue lactulose 30 mL p.o q.i.d.., target 2 3 bowel movements. Status post 10 later clear river colored fluid paracentesis on 02/14, completed IV albumin Patient has no signs of hepatic encephalopathy at this time Criteria for SBP not met per ascitic fluid studies Continue lactulose, rivaroxaban, spironolactone, Lasix, Protonix Follow up with the AFP Monitor CMPs Fluid restriction Strict I&Os Followed outpatient with GI/hepatology for hep C Plan discussed with patient in which all questions answered Case discussed with Dr. Chahal Plan discussed with: Patient My Orders My Orders Orders - YESSICA ENGLAND RESIDENT Procedure Category Date Status Time Lactulose Oral PHA 02/17/25 In Process 18:00 Afp Serum Tumor Marker LAB 02/18/25 In Process 04:00 Cardiac DIET 02/17/25 Transmitted Diet-2gna,Lofat,Lochol Dinner Dietary Evaluation Review Comments: Monitor PO intake, lab values, weight trend, and I/O Expected Outcomes/Goals: Intake to meet >75% estimated needs Lab values to improve FU 3-5 days YESSICA ENGLAND RESIDENT Feb 18, 2025 13:15
[2025-02-18 13:55] LABS: Hematocrit 42.1 % (41.0-53.0); Hemoglobin 14.1 g/dL (13.5-17.5); Mean Corpuscular Hemoglobin 30.7 pg (28.0-32.0); Mean Corpuscular Volume 91.4 fL (80.0-100.0); Nucleated Red Blood Cells % 0.1 %
[2025-02-18 14:21] LABS: Alkaline Phosphatase 91 U/L (46-116); Anion Gap 9 (5-15); BUN/Creatinine Ratio 14.7 (10.0-20.0); Blood Urea Nitrogen 14 mg/dL (9-23); Calcium 8.8 mg/dL (8.7-10.4); Carbon Dioxide 27 mmol/L (20-31); Chloride 103 mmol/L (98-107); Magnesium 1.9 mg/dL (1.6-2.6); Potassium 4.0 mmol/L (3.5-5.1); Sodium 139 mmol/L (136-145); Total Protein 6.3 g/dL (5.7-8.2)
[2025-02-18 14:24] LABS: Alanine Aminotransferase 53 U/L (7-40); Albumin 3.2 g/dL (3.2-4.8); Bilirubin, Total 4.4 mg/dL (0.2-1.0); Glucose 122 mg/dL (74-106)
[2025-02-18 15:07] LABS: Glucose, Body Fluid 151.0 mg/dL (.)
--- NOTE | 2025-02-18 20:49 | DVHPN2 ---
Progress Note - Dictate Date Seen: Feb 18, 2025 Medical Necessity Reason Pt with a Central, PICC or Fol: No vital signs Vital Sign Date Time Temp Pulse Resp B/P (MAP) Pulse Ox O2 Delivery O2 Flow Rate FiO2 02/18/25 20:00 73 02/18/25 17:00 98.3 20 138/87 (104) 97 98.3 02/18/25 08:00 Room Air* 0 21 Total Intake and Output 02/17/25 02/17/25 02/18/25 15:00 23:00 07:00 Intake Total 2020 ml 400 ml Output Total 2300 ml 750 ml Balance -280 ml -350 ml medications Current Medications Medications Dose Ordered Sig/John Route Start Time Stop Time Status Last Admin Dose Admin Acetaminophen/ Hydrocodone Bitart 1 tab Q4HP PRN PO 02/12/25 16:00 02/13/25 15:23 1 TAB Temazepam 15 mg QHSP PRN PO 02/12/25 16:00 02/13/25 23:04 15 MG Ondansetron HCl 4 mg Q4HP PRN IV 02/12/25 16:00 Docusate Sodium 100 mg BIDPRN PRN PO 02/12/25 16:00 Acetaminophen 650 mg Q6HP PRN PO 02/12/25 16:00 Pantoprazole Sodium 40 mg DAILY IV 02/13/25 10:00 02/18/25 09:22 40 MG Nitroglycerin 0.4 mg Q5MINP PRN SL 02/12/25 16:00 Furosemide 40 mg DAILY IV 02/12/25 18:00 02/18/25 09:23 40 MG Morphine Sulfate 2 mg Q4HPRN PRN IV 02/14/25 14:00 Morphine Sulfate 2 mg Q30M PRN IV 02/14/25 14:00 Rifaximin 550 mg BID PO 02/15/25 10:00 02/18/25 09:23 550 MG Spironolactone 100 mg DAILY PO 02/16/25 10:00 02/18/25 09:23 100 MG Lactulose 30 ml QID PO 02/17/25 18:00 02/18/25 17:44 30 ML objective General Appearance: alert, no distress HEENT: EOMI, PERRLA, normal external inspect of ears, no icterus, no nasal drainage Neck: no carotid bruit, no jugular venous distention (JVD), no lymphadenopathy Chest: normal thorax Respiratory: clear to auscultation, normal air movement Cardiovascular: regular rate and rhythm, no diastolic murmur, no jugular venous distention (JVD), no rub, no systolic murmur Abdominal: soft, no hepatomegaly, no mass, no splenomegaly, no tenderness Genitourinary: grossly normal external Musculoskeletal: no joint tenderness, no swelling Extremities: normal pulses, no calf tenderness, no clubbing, no cyanosis, no edema Skin: no bruising, no jaundice, no rash Neurological: alert, No focal deficit laboratory and microbiology Laboratory Tests 02/18/25 12:51 Test 02/18/25 12:51 Range/Units Serum Glucose 122 H 74-106 mg/dL Problem List 1. Cirrhosis of the liver Monitor, GI consult, diuretics 2. Morbid obesity Monitor 3. Diabetes type 2 and hyperglycemia Monitor, insulin sliding scale, HgbA1c 4. Thrombocytopenia Monitor, urine drug screen 5. Cholelithiasis Monitor, GI consult, SCDs Assessment/Plan Subjective: Patient is awake and alert. Objective: Patient was admitted for decompensated liver cirrhosis. Patient continues to have pitting edema to his lower extremities. Patient's edema is improving. Patient is status post paracentesis, over 10 L of fluid was removed. Patient was seen by GI. Hepatitis C is positive. Patient is aware he will follow-up outpatient with GI for hepatitis C. Plan: Continue current treatment. DC planning for tomorrow. Dietary Evaluation Review Comments: Monitor PO intake, lab values, weight trend, and I/O Expected Outcomes/Goals: Intake to meet >75% estimated needs Lab values to improve FU 3-5 days Plan discussed with: Patient, Other LG MCFARLANE NP Feb 18, 2025 20:49
[2025-02-19 01:00] VITALS: BP 105/64; PULSE 73; RESP 18; TEMP 98; O2SAT 95
[2025-02-19 05:00] VITALS: BP 124/76; PULSE 72; RESP 18; TEMP 97.9; O2SAT 96
[2025-02-19 08:00] VITALS: PULSE 71; PULSE 76; RESP 18; O2SAT 95
[2025-02-19 09:00] VITALS: BP 130/73; PULSE 76; RESP 18; TEMP 98.2; O2SAT 95
[2025-02-19 09:02] LABS: Hematocrit 39.8 % (41.0-53.0); Hemoglobin 13.7 g/dL (13.5-17.5); Mean Corpuscular Hemoglobin 30.1 pg (28.0-32.0); Mean Corpuscular Volume 87.3 fL (80.0-100.0); Nucleated Red Blood Cells % 0.0 %
[2025-02-19 09:21] LABS: Albumin 3.2 g/dL (3.2-4.8); Alkaline Phosphatase 92 U/L (46-116); Anion Gap 7 (5-15); BUN/Creatinine Ratio 11.8 (10.0-20.0); Blood Urea Nitrogen 12 mg/dL (9-23); Calcium 8.8 mg/dL (8.7-10.4); Carbon Dioxide 28 mmol/L (20-31); Chloride 104 mmol/L (98-107); Potassium 4.4 mmol/L (3.5-5.1); Sodium 139 mmol/L (136-145); Total Protein 6.4 g/dL (5.7-8.2)
[2025-02-19 09:30] LABS: Alanine Aminotransferase 52 U/L (7-40); Glucose 168 mg/dL (74-106)
[2025-02-19 09:31] LABS: Bilirubin, Total 4.1 mg/dL (0.2-1.0)
[2025-02-19] MEDS ORDERED: FURO1TAB31 PO (11:00)
[2025-02-19] MEDS ORDERED: LACT10SO3 PO (11:00)
[2025-02-19] MEDS ORDERED: RIFA550T PO (11:00)
--- NOTE | 2025-02-19 11:06 | DVHDS2 ---
Discharge Summary Date of Admission Feb 12, 2025 at 16:00 Date of Discharge: Feb 19, 2025 Labs/Diagnostic Data: Laboratory Results Test 02/19/25 08:19 02/18/25 12:51 02/18/25 06:18 02/15/25 13:05 White Blood Count 7.6 10^3/uL (4.4-10.8) Red Blood Count 4.56 10^6/uL (4.5-5.90) Hemoglobin 13.7 g/dL (13.5-17.5) Hematocrit 39.8 % (41.0-53.0) Mean Corpuscular Volume 87.3 fL (80.0-100.0) Mean Corpuscular Hemoglobin 30.1 pg (28.0-32.0) Mean Corpuscular Hemoglobin Concent 34.5 g/dL (32.0-36.0) Red Cell Distribution Width 15.4 % (11.8-14.3) Platelet Count 107 10^3/uL (140-450) Mean Platelet Volume 8.2 fL (6.9-10.8) Neutrophils (%) (Auto) 73.4 % (37.0-80.0) Lymphocytes (%) (Auto) 12.9 % (10.0-50.0) Monocytes (%) (Auto) 9.8 % (0.0-12.0) Eosinophils (%) (Auto) 2.9 % (0.0-7.0) Basophils (%) (Auto) 1.0 % (0.0-2.0) Neutrophils # (Auto) 5.6 10 ^3/uL (1.6-8.6) Lymphocytes # (Auto) 1.0 10 ^3/uL (0.4-5.4) Monocytes # (Auto) 0.7 10 ^3/uL (0-1.3) Eosinophils # (Auto) 0.2 10 ^3/uL (0-0.8) Basophils # (Auto) 0.1 10 ^3/uL (0-0.2) Nucleated Red Blood Cells 0.0 % Sodium Level 139 mmol/L (136-145) Potassium Level 4.4 mmol/L (3.5-5.1) Chloride Level 104 mmol/L (98-107) Carbon Dioxide Level 28 mmol/L (20-31) Anion Gap 7 (5-15) Blood Urea Nitrogen 12 mg/dL (9-23) Creatinine 1.02 mg/dL (0.700-1.30) Glomerular Filtration Rate Calc 89 mL/min (>90) BUN/Creatinine Ratio 11.8 (10.0-20.0) Serum Glucose 168 mg/dL (74-106) Calcium Level 8.8 mg/dL (8.7-10.4) Total Bilirubin 4.1 mg/dL (0.2-1.0) Aspartate Amino Transferase (AST) 64 U/L (13-40) Alanine Aminotransferase (ALT) 52 U/L (7-40) Alkaline Phosphatase 92 U/L (46-116) Ammonia 110 umol/L (11-32) Total Protein 6.4 g/dL (5.7-8.2) Albumin 3.2 g/dL (3.2-4.8) Phosphorus Level 2.9 mg/dL (2.4-5.1) Magnesium Level 1.9 mg/dL (1.6-2.6) Tumor Marker Alpha Fetoprotein <1.8 ng/mL (0.0-8.4) Hepatitis A IgM Antibody Negative Hepatitis B Surface Antigen Negative (Negative) Hepatitis B Core IgM Antibody Negative (Negative) Hepatitis C Antibody Positive (Negative) Test 02/14/25 15:30 02/14/25 08:17 02/12/25 16:42 02/12/25 16:00 Body Fluid Source Peritoneal fluid Body Fluid pH 7 Body Fluid WBC (Manual) 223 CUMM (0-200) Body Fluid RBC (Manual) 111 CUMM (0-2000) Body Fluid Mononuclear Cells 94 % Body Fluid Polymorphonuclear Cells 6 % (0-25) Body Fluid Glucose 151 mg/dL (.) Body Fluid Total Protein 1.2 g/dL (.) Prothrombin Time 13.5 sec (9.3-11.8) Prothrombin Time INR 1.31 (0.9-1.15) Activated Partial Thromboplast Time 31.3 SEC (24.5-34.5) Lipase 32 U/L (12-53) Urine Opiates Screen Neg (NEGATIVE) Urine Fentanyl Screen Neg (NEGATIVE) Urine Barbiturates Screen Neg (NEGATIVE) Urine Phencyclidine Screen Neg (NEGATIVE) Urine Amphetamines Screen Neg (NEGATIVE) Urine Benzodiazepines Screen Neg (NEGATIVE) Urine Cocaine Screen Neg (NEGATIVE) Urine Cannabinoids Screen Neg (NEGATIVE) Test 02/12/25 14:39 02/12/25 11:55 Urine Color Yellow (Yellow) Urine Clarity Clear (Clear) Urine pH 6.0 (5.0-9.0) Urine Specific [place] 1.026 (1.001-1.035) Urine Protein Trace (Negative) Urine Ketones Negative (Negative) Urine Blood 3+ /uL (Negative) Urine Nitrite Negative (Negative) Urine Bilirubin 1+ (Negative) Urine Urobilinogen Over mg/dL (Negative) Urine Leukocyte Esterase Trace /uL (Negative) Urine RBC 60 /hpf (0 - 3) Urine Microscopic WBC 5 /HPF (0-3) Urine Squamous Epithelial Cells None seen /hpf (<5) Urine Bacteria None seen /hpf (None Seen) Urine Mucus Few (None Seen) Urine Glucose Normal mg/dL (Normal) Hemoglobin A1c 5.5 % A1C (<5.7) Other Laboratory Tests 02/19/25 08:19 Brief Hx & Hospital Course: Patient presenting to the ED with chief complaint of abdominal pain. Patient reports that he has been experiencing diffuse abdominal pain and distention for the past 5 months, however, this morning he also began to experience left groin pain and swelling, believing it is due to a hernia. Patient relays that he has history of liver disease and is currently on medication for it. Patient denies any N/V/D, dizziness, fever, chills, or chest pain. While in the emergency department the patient was evaluated by the provider, As per provider: Labs, vital signs, and imagining monitored. Patient was admitted on February 12, 2025 for abdominal. Patient found to have decompensated liver cirrhosis and anasarca with ascites. Patient is status post paracentesis on 02/14/2025. 10 L of fluid was removed. AFP was negative. Ammonia levels were elevated. Patient mentation was normal and at baseline despite hyperammonemia. Patient was started on rifaximin as well as lactulose. Patient seen and evaluated by GI. Patient was positive for hepatitis C. Patient is aware he will need outpatient referral for GI for treatment for hepatitis C. Patient was prescribed lactulose as rifaximin and he was instructed to continue his diuretic with Lasix and Aldactone. He scheduled with PCP in 1 week. The patient received proper medical treatment and medications. Vital signs, Imaging and Laboratory Work was monitored daily. All consults recommendations were followed as provided. There were no complaints or new complaints upon discharge, all questions and concerns were answered. Patient was advised to return to the ER or call 911 if any headaches, dizziness, shortness of breath, chest pain, bleeding, fevers, or worsening of medical condition. Patient/Family was counseled about treatment plan, medications, possible side effects, patient verbalized understanding. All questions were answered to the best of my ability. The patient symptoms improved and they are okay to be DC. Condition at Discharge: Good Final Diagnosis/Problems List Decompensated liver cirrhosis Hepatic encephalopathy Hepatitis C Secondary Diagnosis: Morbid obesity Diabetes type 2 and hyperglycemia Thrombocytopenia Cholelithiasis Discharge Disposition: Home Discharge Instruct/Medications Diet: Cardiac 2g Na,low cholest Activity: No Restrictions, As Tolerated Follow Up/Referral: PCP 1 week You will need a referral for GI Medications: Continue meds as ordered. Scheduled Carvedilol (Coreg), 3.125 MG PO Q12HR Furosemide (Lasix), 40 MG PO BID Lactulose (Lactulose), 30 ML PO QID Rifaximin (Xifaxan), 550 MG PO BID Spironolactone (Spironolactone), 1 TAB PO DAILY Discharge Statement: "Patient was advised to return to the ER or call 911 if any headaches, dizziness, shortness of breath, chest pain, abdominal pain, bleeding, fevers, or worsening of medical condition. Patient was counseled about treatment plan, medications, possible side effects, patientverbalized understanding. All questions were answered to the best of my ability. This discharge took greater then 30 minutes in planning, reviewing documentation, counseling the patient, and discussing with other team members." ASSESSMENT ASSESSMENT Assessment Decompensated liver cirrhosis Hepatic encephalopathy Hepatitis C LG MCFARLANE NP Feb 19, 2025 11:05
[2025-02-19] MEDS ORDERED: SPIR50TA5 PO (11:21)
[2025-02-19] MEDS ORDERED: CARV-214 PO (11:21)
[2025-02-19 12:36] VITALS: BP 128/80; PULSE 76; RESP 18; TEMP 98.2; O2SAT 98
--- NOTE | 2025-02-19 17:21 | DVHPN2 ---
Progress Note Date Seen: Feb 19, 2025 Resident Creating Document: YESSICA ENGLAND RESIDENT Medical Necessity Reason Pt with a Central, PICC or Fol: No Subjective Patient reports: No new complaints Objective vital signs Vital Sign Date Time Temp Pulse Resp B/P (MAP) Pulse Ox O2 Delivery O2 Flow Rate FiO2 02/19/25 12:36 98.2 76 18 98 02/19/25 09:36 130/73 02/19/25 08:00 Room Air* 0 21 Total Intake and Output 02/18/25 02/18/25 02/19/25 15:00 23:00 07:00 Intake Total 1276 ml 900 ml Output Total 1700 ml 1200 ml Balance -424 ml -300 ml Examination Morbidly obese male patient lying in the bed, no acute distress General: Morbidly obese, afebrile, palor, mucosae are moist. Icterus. Cardiovascular: Regular S1 and S2. No murmurs, gallops or rubs. No JVD elevation. Pedal edema. Respiratory: Bilateral decreased air entry, no wheezing Abdomen: Soft, nontender, nondistended, normoactive bowel sounds, no rebound tenderness, organomegaly could not be assessed Genitourinary: Deferred MSK/skin: Mobilizes 4 limbs. Skin is dry and warm Neurological: No motor, no sensitive deficits, normal speech. Pupils are isocoric and reactive. laboratory and microbiology Laboratory Tests 02/19/25 08:19 Test 02/19/25 08:19 Range/Units Serum Glucose 168 H 74-106 mg/dL Microbiology Date/Time Source Procedure Growth Status 02/14/25 15:30 Ascities Fluid Gram Stain - Final Resulted 02/14/25 15:30 Ascities Fluid Body Fluid Culture - Preliminary No growth Resulted Labs and/or images reviewed: Labs reviewed by me, Image(s) reviewed by me Problem List/Assessment/Plan Problem List/Assessment/Plan Decompensated Liver cirrhosis with ascites status post paracentesis Likely alcoholic hepatitis-meld score 16 Chronic hepatitis-C, Positive hep C status History of IV drug use 1996 History of incarceration Hyperammonemia Former alcohol use Thrombocytopenia Morbid opacity Severe protein calorie malnutrition Plan: Recommendation: Dr. Chahal Ammonia trending trending up but no signs of hepatic encephalopathy. Continue lactulose 30 mL p.o q.i.d.., target 2 3 bowel movements. Stable to be discharged. Status post 10 later clear rvier colored fluid paracentesis on 02/14, completed IV albumin Patient has no signs of hepatic encephalopathy at this time Criteria for SBP not met per ascitic fluid studies Continue lactulose, rivaroxaban, spironolactone, Lasix, Protonix AFP less than 1.8 Monitor CMPs Fluid restriction Strict I&Os Followed outpatient with GI/hepatology for hep C Plan discussed with patient in which all questions answered Case discussed with Dr. Chahal Plan discussed with: Patient Dietary Evaluation Review Comments: Monitor PO intake, lab values, weight trend, and I/O Expected Outcomes/Goals: Intake to meet >75% estimated needs Lab values to improve FU 3-5 days YESSICA ENGLAND RESIDENT Feb 19, 2025 17:20
== END 2025-02-19 13:50 | disposition home or self-care (01) | DRG 280 ==
LOC: ER 11:16 → OVERFLOW 16:00 → TELE-WESTW 02-13 22:29
PROVIDERS: ADMIT Nurse Practitioner; ATTEND Nurse Practitioner
PROC: 0W9G3ZZ Drainage of Peritoneal Cavity, Percutaneous Approach (ICD-10-PCS; principal; 2025-02-14)
DX: K70.31 Alcoholic cirrhosis of liver with ascites (principal); D68.9 Coagulation defect, unspecified; K76.6 Portal hypertension; D69.6 Thrombocytopenia, unspecified; K76.82 Hepatic encephalopathy; E66.01 Morbid (severe) obesity due to excess calories; E11.65 Type 2 diabetes mellitus with hyperglycemia; I85.10 Secondary esophageal varices without bleeding; K80.20 Calculus of gallbladder without cholecystitis without obstruction; K42.9 Umbilical hernia without obstruction or gangrene; R16.1 Splenomegaly, not elsewhere classified; B19.20 Unspecified viral hepatitis C without hepatic coma; Z68.43 Body mass index [BMI] 50.0-59.9, adult
CPT/HCPCS: 36415; 49083; 74176; 76705; 76942; 80053; 80074; 80307; 81001; 82105; 82140; 83036; 83690; 83735; 83986; 84100; 85025; 85610; 85730; 87071; 87205; 88341; 89051; G0378; J2470; P9047